=== PATIENT | male | born 1935 | race Caucasian/White ===

== ENCOUNTER 2018-02-16 02:42 | Emergency (ER) | payer OTHER ==
[2012-07-05 21:32] VITALS: BP 140/71
[2018-02-16] MEDS ORDERED: EPINEPHrine 1 MG/10 ML SYR IV ONE (02:43)
[2018-02-16] MEDS ORDERED: Caclcium Chloride 10% INJ SYR IV ONE (02:43)
[2018-02-16] MEDS ORDERED: SODIUM CHL 0.9% 1000 ML BAG IV ONE (02:43)
--- OUTSIDE RECORDS SUMMARY | 2018-02-16 02:45 | XMS REPORT | Clinical Summary ---
:1935 Author Organization [facility] Address [address] [place] [address] Care Team Providers Name Role Phone Ronald León MD Primary Care Provider Allergies Active Allergy Reactions Severity Noted Date Comments Albuterol Other (See 07/28/2016 Tachycardia, anxiety, Comments) shakiness Amoxicillin Anaphylaxis, High 01/27/2016 Angioedema Swelling Clarithromycin Swelling, Rash Low 07/28/2016 Angioedema Arformoterol Other (See 07/28/2016 Tachycardia, anxiety Comments) Clindamycin Phosphate Swelling 07/28/2016 Angioedema, fever, hypertension, tongue was white Enalapril 01/27/2016 Dry cough Cephalexin Itching 07/28/2016 Angioedema Morphine Other (See 07/28/2016 Anxiety, hypertension, Comments) AMS Penicillins Rash Low 07/28/2016 Clopidogrel Rash Medium 02/26/2017 Possibly Thrombotic Thrombocytopenic Purpura (Itching & Bruising) Current Medications Prescription Sig. Disp. Refills Start End Status Date Date metoprolol Take 12.5 mg by Active tartrate mouth 2 (two) (LOPRESSOR) 25 mg times a day. tablet clopidogrel Take 75 mg by Active (PLAVIX) 75 mg mouth every tablet morning. pantoprazole Take 40 mg by Active (PROTONIX) 40 MG mouth 2 (two) EC tablet times a day. furosemide Take 40 mg by Active (LASIX) 40 mg mouth 2 (two) tablet times a day. potassium Take 10 mEq by Active chloride mouth every (K-DUR,KLOR-CON) morning. 10 MEQ CR tablet aspirin (ECOTRIN) Take 81 mg by Active 81 MG enteric mouth nightly. coated tablet pravastatin Take 20 mg by Active (PRAVACHOL) 20 MG mouth nightly. tablet pyridoxine, Take 100 mg by Active vitamin B6, (B-6) mouth every 100 MG tablet morning. polyethylene Take 25.5 g by Active glycol (MIRALAX) mouth every 17 gram packet morning. traMADol (ULTRAM) Take 50 mg by Active 50 mg tablet mouth 4 (four) times a day as needed for moderate pain. ipratropium Take 500 mcg by Active (ATROVENT) 0.02 % nebulization 2 nebulizer (two) times a solution day. budesonide Take 0.5 mg by Active (PULMICORT) 0.5 nebulization 2 mg/2 mL nebulizer (two) times a solution day. tiotropium Place 1 capsule Active (SPIRIVA) 18 mcg into inhaler and per inhalation inhale every capsule morning. ipratropium USE ONE VIAL IN 62.5 mL 0 Active (ATROVENT) 0.02 % NEBULIZER EVERY 7 nebulizer 6 HOURS solution NEEDED blood sugar One strip daily 100 strip 2 Active diagnostic strips 7 (glucose blood) strip test strips mupirocin Active (BACTROBAN) 2 % 7 ointment amLODIPine Take 2.5 mg by Active (NORVASC) 2.5 mg mouth 2 (two) tablet times a day. hydrALAZINE Take 25 mg by Active (APRESOLINE) 25 mouth MG tablet continuously as needed. cyanocobalamin, Place 2,500 mcg Active vitamin B-12, under the tongue 5,000 mcg tablet, daily. sublingual ONETOUCH DELICA TEST FASTING 100 each 0 Active LANCETS 33 gauge BLOOD GLUCOSE 7 misc EVERY MORNING. ONETOUCH ULTRA TEST FASTING 100 strip 0 Active TEST strip test BLOOD GLUCOSE 7 strips EVERY MORNING. PERFOROMIST 20 INHALE THE 180 mL 1 Active mcg/2 mL CONTENTS OF 1 8 nebulizer VIAL MIXED WITH solution BUDESONIDE VIA NEBULIZER TWICE DAILY DIRECTED amLODIPine Take 2.5 mg by Discontinued (NORVASC) 2.5 MG mouth nightly. 017 tablet clonIDINE Take 0.1 mg by Discontinued (CATAPRES) 0.1 MG mouth. 017 tablet potassium Take 10 mEq by Discontinued chloride mouth daily. 017 (K-DUR,KLOR-CON) 10 MEQ CR tablet pravastatin Take 20 mg by Discontinued (PRAVACHOL) 20 MG mouth nightly. 017 tablet polyethylene Take 25.5 g by Discontinued glycol (MIRALAX) mouth 2 (two) 017 17 gram packet times a day. 1.5 capfuls formoterol Take 20 mcg by Discontinued fumarate nebulization 2 017 (PERFOROMIST) 20 (two) times a mcg/2 mL day. nebulizer solution budesonide Take 0.5 mg by Discontinued (PULMICORT) 0.5 nebulization 2 017 mg/2 mL nebulizer (two) times a solution day. levalbuterol Take 1 ampule by Discontinued (XOPENEX) 0.63 nebulization 017 mg/3 mL nebulizer every 6 (six) solution hours as needed for wheezing or shortness of breath. tiotropium Place 1 capsule Discontinued (SPIRIVA) 18 mcg into inhaler and 017 per inhalation inhale once capsule daily. albuterol Inhale 2 puffs Discontinued (PROVENTIL every 6 (six) 017 HFA;VENTOLIN HFA) hours as needed 90 mcg/actuation for wheezing. inhaler pyridoxine, Take 100 mg by Discontinued vitamin B6, (B-6) mouth daily. 017 100 MG tablet blood-glucose Use as 1 each 0 Discontinued meter (ONETOUCH instructed ULTRA2) kit (E11.69) blood sugar Test FSBG once 100 strip 3 Discontinued diagnostic strips daily in the (ONETOUCH ULTRA morning (E11.69) TEST) strip test strips lancets (ONETOUCH Test FSBG once 100 each 3 Discontinued DELICA LANCETS) daily in the 33 gauge misc morning (E11.69) famotidine Take 40 mg by 3 Discontinued (PEPCID) 40 MG mouth every 6 017 tablet evening. furosemide Take 40 mg by 3 Discontinued (LASIX) 40 mg mouth 2 (two) 6 017 tablet times a day. Hold for SBP less than 120 isosorbide Take 15 mg by 3 Discontinued mononitrate mouth daily as 6 017 (IMDUR) 30 MG 24 needed hr tablet (SBP>130). metoprolol Take 50 mg by 3 Discontinued tartrate mouth 2 (two) 7 017 (LOPRESSOR) 50 mg times a day. tablet pantoprazole Take 1 tablet by 1 Discontinued (PROTONIX) 40 MG mouth daily. 6 017 EC tablet aspirin (ECOTRIN) Take 81 mg by Discontinued 81 MG enteric mouth every 017 coated tablet evening. ticagrelor Take 90 mg by Discontinued (BRILINTA) 90 mg mouth 2 (two) 017 tablet times a day. bisacodyl Insert 1 30 suppository 1 (DULCOLAX) 10 mg suppository (10 7 017 suppository mg total) into the rectum daily as needed for constipation for up to 30 days. ciprofloxacin Take 1 tablet 10 tablet 0 (CIPRO) 500 MG (500 mg total) 7 017 tablet by mouth 2 (two) times a day for 5 days. metroNIDAZOLE Take 1 tablet 15 tablet 0 (FLAGYL) 500 MG (500 mg total) 7 017 tablet by mouth 3 (three) times a day for 5 days. metoprolol Take 12.5 mg by Discontinued tartrate mouth 2 (two) 017 (LOPRESSOR) 25 mg times a day. tablet HOLD for SBP less than 120 LORAZepam Take 1 tablet (1 1 tablet 0 Discontinued (ATIVAN) 1 MG mg total) by 7 017 tablet mouth every 6 (six) hours as needed for anxiety for up to 1 day. traMADol (ULTRAM) Take 50 mg by Discontinued 50 mg tablet mouth 4 (four) 017 times a day as needed for moderate pain or severe pain. FUROSEMIDE ORAL Take 30 mg by Discontinued mouth 2 (two) 017 times a day. clonIDINE Take 0.1 mg by Discontinued (CATAPRES) 0.1 MG mouth as needed 017 tablet for high blood pressure (SBP>170). clonIDINE HCl Take 1 tablet 90 tablet 0 (CATAPRES) 0.2 MG (0.2 mg total) 7 017 tablet by mouth every 8 (eight) hours for 30 days. hydrALAZINE Take 1 tablet 90 tablet 0 (APRESOLINE) 25 (25 mg total) by 7 017 MG tablet mouth every 8 (eight) hours for 30 days. hydrALAZINE Take 25 mg by Discontinued (APRESOLINE) 25 mouth 3 (three) 017 MG tablet times a day. clonIDINE Take 0.1 mg by Discontinued (CATAPRES) 0.1 MG mouth 3 (three) 017 tablet times a day. furosemide Take 40 mg by Discontinued (LASIX) 40 mg mouth daily. 017 tablet potassium Take 10 mEq by Discontinued chloride mouth daily. 017 (K-DUR,KLOR-CON) 10 MEQ CR tablet clopidogrel Take 75 mg by 3 Discontinued (PLAVIX) 75 mg mouth once 7 017 tablet daily. econazole nitrate APPLY AND GENTLY 6 Discontinued 1 % cream MASSAGE INTO 7 017 AFFECTED AREA(S) TWICE DAILY. triamcinolone APPLY AND RUB IN 2 Discontinued (KENALOG) 0.1 % A THIN FILM TO 7 017 cream AFFECTED AREAS TWICE DAILY.(AM AND PM). levalbuterol Inhale 1 ampule. Discontinued (XOPENEX) 0.63 017 mg/3 mL nebulizer solution traMADol (ULTRAM) Take 1 tablet by Discontinued 50 mg tablet mouth. 6 017 sodium,potassium, Take 1 Bottle by 1 Bottle 0 mag sulfates mouth once for 1 017 (SUPREP BOWEL dose. PREP KIT) 17.5-3.13-1.6 gram recon soln PERFOROMIST 20 INHALE THE 180 mL 1 Discontinued mcg/2 mL CONTENTS OF 1 7 017 nebulizer VIAL MIXED WITH solution BUDESONIDE VIA NEBULIZER TWICE DAILY DIRECTED ipratropium USE ONE VIAL IN 62.5 mL 0 Discontinued (ATROVENT) 0.02 % NEBULIZER EVERY 7 017 nebulizer 6 HOURS solution NEEDED hydrALAZINE Take 25 mg by Discontinued (APRESOLINE) 25 mouth 2 (two) 017 MG tablet times a day. isosorbide Take 15 mg by Discontinued mononitrate mouth daily. 017 (IMDUR) 30 MG 24 hr tablet ipratropium Take 500 mcg by Discontinued (ATROVENT) 0.02 % nebulization 017 nebulizer every 4 (four) solution hours as needed for wheezing or shortness of breath. hydrALAZINE Take 1 tablet 90 tablet 0 (APRESOLINE) 25 (25 mg total) by 7 017 MG tablet mouth every 8 (eight) hours for 30 days. amLODIPine Take 1 tablet 60 tablet 11 (NORVASC) 2.5 mg (2.5 mg total) 7 017 tablet by mouth 2 (two) times a day for 30 days. clindamycin Discontinued (CLEOCIN) 300 MG 7 017 capsule clindamycin Take 1 capsule 28 capsule 0 (CLEOCIN) 300 MG (300 mg total) 7 017 capsule by mouth 4 (four) times a day for 7 days. Active Problems Problem Noted Date Chest pain at rest 02/12/2018 Pseudophakia of both eyes 12/07/2017 Overview: Phaco/IOL OS 12/06/17 PC VAZQUEZ +23.5 diopter Doing well. Continue PO drops. Syncope 07/08/2017 Ataxia 03/01/2017 Cerebrovascular accident (CVA) 02/26/2017 Hx of chronic angle-closure glaucoma 02/25/2017 Overview: Dx: hx of chronic angle closure Tmax: Average IOP: 21 mmHg OU Target IOP: high teens Current Medications: none Past Medications: xalatan, alphagan Allergies: no eye drops C/D (Date): 0.4/0.4 OU (10/14) Laser/Surgeries: LPI OU Pachymetry: pending Gonioscopy: Grade 2 to 3 OU Family history: no glaucoma Last HVF (Date): 08/14 -OD: poor reliablility, generalized depression -OS: poor reliablility, rim artifact Last OCT (Date): 08/14, g=90/84 -OD: borderline inferior thinning -OS: inferior thinning Last Dilated: 10/14 Comments: Enteritis due to Escherichia coli 02/13/2017 SBO (small bowel obstruction) 02/07/2017 Closed nondisplaced fracture of proximal phalanx of left little finger 2015 Exotropia, alternating, with V pattern 08/26/2016 Macular degeneration, dry 08/26/2016 PVD (posterior vitreous detachment), both eyes 08/26/2016 Rosacea 08/26/2016 Hx-TIA (transient ischemic attack) 08/26/2016 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 Overview: Recently had 4 stents placed on 07/28/2016 Convergence insufficiency 08/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 NST (non-stress test) nonreactive 07/28/2016 Chronic obstructive pulmonary disease 01/27/2016 Delirium 01/27/2016 Hip pain 01/27/2016 Abnormal liver function tests 01/27/2016 Lumbosacral radiculopathy 01/27/2016 Nonspecific finding on examination of urine 08/15/2013 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 06/14/2013 Pleural cavity effusion 12/20/2012 Congestive heart failure 12/06/2012 Influenza with respiratory manifestation other than pneumonia 12/06/2012 Abnormal gait 08/10/2012 Anemia 08/10/2012 Follow up 08/10/2012 Hypotension 08/10/2012 Blisters of multiple sites 07/06/2012 Effusion of knee 07/06/2012 Knee pain 07/06/2012 Mass of breast 02/02/2012 Malaise and fatigue 02/02/2012 Neck pain 11/25/2011 Adiposity 05/13/2011 Urinary urgency 05/13/2011 Benign prostatic hyperplasia 03/10/2011 Constipation 03/10/2011 HTN (hypertension) 03/10/2011 HLD (hyperlipidemia) 03/10/2011 Low back pain 03/10/2011 Primary pulmonary hypertension 03/10/2011 Sciatica 03/10/2011 Sleep apnea 03/10/2011 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 Resolved Problems Problem Noted Date Resolved Date Nuclear sclerotic cataract of both eyes 08/26/2016 12/07/2017 Encounters Date Type Specialty Care Team Description 02/14/2018 Patient Outreach Quality Luz Elena Mojica RN 02/12/2018 Emergency General Internal Jyoti Barnes, Chest pain at rest ( Primary Dx); - Medicine Dyspnea on exertion 02/14/2018 Johnny Hutchinson MD Lee, Kelvin M., MD 02/03/2018 Telephone Ophthalmology Lin Petersen MD 12/23/2017 Office Visit Ophthalmology Lin Petersen Pseudophakia of both G., eyes (Primary Dx) 12/07/2017 Office Visit Ophthalmology Lin Petersen Pseudophakia of both G., eyes (Primary Dx) 12/06/2017 Hospital Encounter Plastic Surgery Lin Petersen MD 12/06/2017 Anesthesia Event Plastic Surgery Khushboo Nobles nd, MD 12/06/2017 Procedure Pass Plastic Surgery 12/06/2017 Surgery Plastic Surgery Lin Petersen PHATONEY W/ KATIE Alas MD 11/29/2017 Refill Neurology Ana Luisa Linder MD 11/16/2017 Office Visit Ophthalmology Lin Petersen Pseudophakia (Primary Bishop, Dx) 11/16/2017 Telephone Ophthalmology Lin Petersen MD 11/15/2017 Office Visit Ophthalmology Lin Petersen Pseudophakia of right GMD Alma eye (Primary Dx) 11/15/2017 Hospital Encounter Plastic Lin Harding MD 11/15/2017 Anesthesia Event Plastic Surgery Rajan Wright MD 11/15/2017 Procedure Pass Plastic Surgery 11/15/2017 Surgery Plastic Surgery Lin Petersen PHACO W/ IOL RIGHT GMD Alma EYE WITH LIMBAL RELAXING INCISION RIGHT EYE 11/04/2017 Refill Internal Medicine Ronald León MD 10/14/2017 Office Visit Ophthalmology Lin Petersen Nuclear sclerotic cataract of both eyes (Primary Dx); MD Bishop Macular degeneration, dry; Hx of chronic angle-closure glaucoma 10/13/2017 Office Visit Neurology Harry, Cosme, Blurred vision, bilateral ( Primary Dx); Intracranial atherosclerosis 10/08/2017 Orders Only Internal Medicine Ronald León MD 10/05/2017 Telephone Neurology Harry, Cosme, MD 10/01/2017 Telephone Internal Medicine Ronald León Vasculitis (Primary MD Garrett Dx) 09/29/2017 Hospital Encounter Radiology RomeliaKushalic Transient vision disturbance of both eyes; MD Garrett Cerebrovascular disease 09/29/2017 Hospital Encounter Radiology RomeliaKushalic Transient vision disturbance of both eyes; MD Garrett Cerebrovascular disease 09/21/2017 Office Visit Internal Medicine Ronald León Cellulitis, unspecified cellulitis site (Primary Dx); MD Garrett Transient vision disturbance of both eyes; Essential hypertension; Cerebrovascular disease 09/21/2017 Procedure Pass Radiology 09/21/2017 Procedure Pass Radiology 09/16/2017 Documentation Ophthalmology Marge Black MD 09/15/2017 Documentation Ophthalmology Sofia, Pancho Baer MD 09/14/2017 Orders Only Internal Medicine Edwina Jara MA 09/13/2017 Lab Lab Caren Black, both Marge Baer MD eyes 09/13/2017 Office Visit Ophthalmology Caren Black, both Marge Baer MD eyes (Primary Dx) 09/13/2017 Telephone Ophthalmology Marge Black MD 09/10/2017 Telephone Ophthalmology Lin Petersen MD 09/01/2017 Office Visit Ophthalmology Lin Petersen Nuclear sclerotic cataract of both eyes (Primary Dx); MD Bishop Macular degeneration, dry; Hx of chronic angle-closure glaucoma; PVD (posterior vitreous detachment), both eyes; Exotropia, alternating, with V pattern; Convergence insufficiency; Cerebrovascular accident (CVA) due to other mechanism 08/25/2017 Hospital Encounter Radiology Ronald León Thyroid nodule MD Garrett 08/25/2017 Hospital Encounter Radiology Cory Linderness of breath Ana Luisa Baer MD 08/16/2017 Transcribe Orders Access Christine Linder of breath Ana Luisa Baer (Primary Dx) 08/15/2017 Orders Only Internal Medicine Ronald León Thyroid nodule MD Garrett (Primary Dx) 08/13/2017 Hospital Encounter Radiology Ronald León Thyroid mass MD Garrett 08/09/2017 Orders Only Internal Medicine Ronald León Thyroid mass ( Primary MD Garrett Dx) 07/16/2017 Refill Neurology Ana Luisa Linder MD 07/10/2017 Orders Only Procedural Cardiology Haider Kevin 07/08/2017 Emergency General Internal Jyoti Barnes, Transient cerebral ischemia, unspecified type (Primary Dx); - Medicine Syncope, unspecified syncope type 07/12/2017 Alex Mclaughlin MD Kazim, Lubna S., MD 07/08/2017 Procedure Pass General Internal Medicine 06/24/2017 Refill Neurology Ana Luisa Linder MD 06/15/2017 Procedure Pass Gastroenterology 06/08/2017 Refill Neurology Ana Luisa Linder MD 05/28/2017 Telephone Internal Medicine Marek EdwinaGLORIA 05/26/2017 Hospital Encounter Radiology Ronald León Dyspnea on exertion MD Garrett 05/26/2017 Office Visit Gastroenterology Michelle, Generalized abdominal pain (Primary Dx); Cuauhtemoc Moralez Colon cancer screening 05/26/2017 Office Visit Internal Medicine Ronald León Dyspnea on exertion MD Garrett (Primary Dx) 05/12/2017 Documentation Nader Niño 2017 Office Visit Neurology Cosme Mcdonald, Cerebrovascular accident ( CVA) due to other mechanism (Primary Dx); Intracranial atherosclerosis; Memory difficulty; Essential hypertension 03/15/2017 Abstract Orthopedic Surgery Rajan Aaron MD 03/06/2017 Patient Outreach Quality Karen Maya RN 02/26/2017 Hospital Encounter Neurology Amadeo Ward Cerebrovascular accident (CVA) due to other mechanism (Primary Dx); - MD Mervin Hypertensive emergency; 03/06/2017 Cash Greer Ataxia; MD Lisseth Vertigo; Metabolic acidosis; Abnormal gait 02/25/2017 Hospital Encounter Radiology Ronald León Transient cerebral MD Garrett ischemia, unspecified type 02/25/2017 Office Visit Ophthalmology Lin Petersen Nuclear sclerotic cataract of both eyes (Primary Dx); MD Herberth Alas of chronic angle-closure glaucoma; Macular degeneration, dry; PVD (posterior vitreous detachment), both eyes; Exotropia, alternating, with V pattern; Convergence insufficiency; Sleep apnea, unspecified type; Hx-TIA (transient ischemic attack); Coronary artery disease involving [place] coronary artery of [place] heart with angina pectoris 02/25/2017 Office Visit Internal Medicine Ronald León Essential hypertension (Primary Dx); MD Garrett Hypotension, unspecified hypotension type; Transient cerebral ischemia, unspecified type 02/25/2017 Procedure Pass Radiology 02/24/2017 Abstract Orthopedic Surgery Rajan Aaron MD 02/24/2017 Abstract Orthopedic Surgery Rajan Aaron MD after 02/15/2017 Immunizations Name Dates Previously Given Next Due FLUZONE HIGH-DOSE PF 08/26/2016 Pneumococcal Conjugate 04/29/2009 Pneumococcal Conjugate 13-Valent 03/07/2015 Pneumococcal Polysaccharide 08/26/2016 Family History Medical History Relation Name Comments Testicular cancer Brother Cancer Brother Wander Sykora - Heart disease Father Robinson Sykora - Hypertension Father Robinson Sykora - Stroke Father Robinson Sykora - Cancer Maternal Aunt Isadora Kovar - Cancer Maternal Grandmother Marlin Senkyrik - Glaucoma Maternal Grandmother Marlin Senkyrik - Cancer Maternal Uncle Jose Senkyrik - Cancer Mother Luzma Sykora - Heart disease Mother Luzma Sykora - Hypertension Mother Luzma Sykora - Leukemia Mother Luzma Sykora - Stroke Mother Luzma Sykora - Hypertension Sister Leukemia Sister Cancer Sister Darwinralf Morfin - Leukemia Hypertension Sister Darwin Rich - Leukemia Hypertension Sister Darwin Relation Name Status Comments Brother Brother Wander Sykora - Father Robinson Sykora - Maternal Aunt Isadora Kovar - Maternal Grandmother Marlin Senkyrik - Maternal Uncle Jose Senkyrik - Mother Luzma Sykora - Sister Sister Darwin Morfin - Leukemia Sister Darwin Social History Tobacco Use Types Packs/Day Years Used Date Never Smoker Smokeless Tobacco: Never Used Comments: Smokeless tobacco user - started 1964 -quit 1993 Alcohol Use Drinks/Week oz/Week Comments Yes social - 1-2 drinks on occassion Sex Assigned at Date Recorded Not on file Last Filed Vital Signs Vital Sign Reading Time Taken Blood Pressure 138/66 02/14/2018 12:03 PM CDT Pulse 76 02/14/2018 12:03 PM CDT Temperature 37 C (98.6 F) 02/14/2018 7:29 AM CDT Respiratory Rate 18 02/14/2018 8:06 AM CDT Oxygen Saturation 97% 02/14/2018 7:54 AM CDT Inhaled Oxygen Concentration - - Weight 120 kg (265 lb 8 oz) 12/06/2017 6:42 AM SENIOR LOAN PROCESSOR Height 182.9 cm (6') 12/06/2017 6:42 AM SENIOR LOAN PROCESSOR Body Mass Index 36.01 12/06/2017 6:42 AM SENIOR LOAN PROCESSOR Plan of Treatment Date Type Specialty Care Team Description 02/17/2018 Office Visit Internal Medicine Ronald León MD [address] [place], [place] [id number] 03/24/2018 Office Visit Ophthalmology Lin Petersen MD [address] [place], [place] [id number] Health Maintenance Due Date Last Done Comments ZOSTER VACCINE 1996 INFLUENZA VACCINE 06/29/2017 08/26/2016 PNEUMOCOCCAL-13 Completed 03/07/2015 PNEUMOCOCCAL POLYSACCHARIDE VACCINE AGE 65 Completed 08/26/2016, 04/29/2009 AND OVER Implants Implanted Type Area Commercial [employer] Device Expiration Model / Identifier Date Serial / Lot Stent Cor Promus Premier Everm Elut Otw 2.5x16mm Pltnm Cr - [id number] Coronary N/A: BSC 03/21/2017 [id number] / Implanted: 07/28/2016 (Quantity not on file) Stents N/A INTERVENTIONAL / CARDIOLOGY [id number] Lens Iol Tecnis Preload 1 Piece Acrylic 23.5d - [id number] Ophthalmic N/A: [employer] 08/06/2020 [id number] / Implanted: 11/15/2017 (Quantity not on file) Implants N/A [employer] [id number] / [id number] Lens Iol Tecnis Preload 1 Piece Acrylic 23.5d - [id number] Ophthalmic Left: [employer] 12/15/2019 [id number] / Implanted: 12/06/2017 (Quantity not on file) Implants Eye [employer] [id number] / [id number] Right Hip Replacement Procedures Procedure Name Priority Date/Time Associated Comments Diagnosis ECHOCARDIOGRAM 2D Routine 02/13/2018 11:29 Results for this COMPLETE W MMODE AM CDT procedure are in SPECTRAL COLOR DOPPLER the results (24544) section. PHACO W/ IOL 12/06/2017 7:30 H25.13 CATARACT AM SENIOR LOAN PROCESSOR Case Notes REG LENS Special Needs REG LENS PHACO W/ IOL RIGHT EYE WITH LIMBAL 11/15/2017 10:30 AM SENIOR LOAN PROCESSOR H25.13 CATARACT RELAXING INCISION RIGHT EYE Case Notes REG LENS Special Needs REG LENS IOL BIOMETRY - OU - Routine 10/14/2017 2:51 PM Nuclear sclerotic Results for this BOTH EYES SENIOR LOAN PROCESSOR cataract of both procedure are in eyes the results section. CV STRESS TEST NUCLEAR Routine 07/10/2017 8:53 AM Results for this CARDIO CDT procedure are in the results section. EEG AWAKE/DROWSY LESS Routine 07/09/2017 10:34 AM Results for this THAN 41 MIN CDT procedure are in the results section. ECHOCARDIOGRAM 2D Routine 02/27/2017 11:16 AM Results for this COMPLETE W MMODE CDT procedure are in SPECTRAL COLOR DOPPLER the results (55488) section. after 02/15/2017 Results PV physiologic arterial lower ext bilat complete w jackie (02/14/2018 9:30 AM) Specimen Performing Laboratory [facility] [address] [place] [address] Narrative Vascular Diagnostic Laboratory Physiologic Arterial Leg Report [id number] [place] [address] Pat.Name:CHRISTINE BENITEZ [facility].ID:[id number] .Date: 02/14/2018 Refer.MD:JASMIN DUQUE MD Exam Time: 8:44:00 AMStudy Type:Physiologic Leg Height:70inDOBAge:1934,[age]Y Sex: MALESonogrphr: VAUGHN Quintanilla Pat. Stat.:Inpatient TapeVol: FE, CPT - 4: 81395 Echo Event ID:[id number] Order ID:[id number] Reason for Study:History of bilateral leg pain. CAD, systolic and diastolic CHF, TIA, ascending AA, COPD, HTN, HLD,who presents with substernal "jabbing" chest pain described as pleurisy, that begins this morning when he wakes up. Race:C SUMMARY: DOPPLER SIGNALS /ANALOG WAVEFORMS: DOPPLER SIGNALS ANALOG WAVEFORMS ARTERY RIGHT LEFT RIGHT LEFT Common Femoral Normal Normal Normal Normal Superficial Femoral Normal NormalNormalNormal PoplitealNormal NormalNormalNormal Posterior Tibial Normal NormalNormal Normal Dorsalis Pedis Abnormal Abnormal AbnormalAbnormal SEGMENTAL PRESSURE(mmHg): RIGHT LEFT Brachial 142 IV Low [place]596 166 Calf [id number] Ankle DP 137 150 Ankle [id number] Great Toe 5156 ANKLE/BRACHIAL INDEX: RIGHTLEFT Dorsalis Pedis.961.06 Posterior Tibial.95 .89 TOE/BRACHIAL INDEX: RIGHT LEFT .36.39 PRELIMINARY FINDINGS: 1.Findings suggest tibial artery obstructive disease, bilaterally. 2.Ankle/brachial indices fall into the normal category on the right and minimal category on the left PT and normal category on the left DP. 3.Toe/brachial indices fall into the moderate-severe category, bilaterally. 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 Ankle/brachial indices fall into the normal category on the right and minimal category on the left PT and normal category on the left DP.Toe/brachial indices fall into the moderate-severe category, bilaterally. Signed 02/14/2018 01:45 PM Corey Giron MD, RPVI Procedure Note Interface, Radiology Results In - 02/14/2018 1:46 PM CDT Vascular Diagnostic Laboratory Physiologic Arterial Leg Report [id number] [place] [address] Pat.Name: CHRISTINE BENITEZ Pat.ID: [id number] .Date: 02/14/2018 Refer.MD: JASMIN DUQUE MD Exam Time: 8:44:00 AM Study Type:Physiologic Leg Height: 70in Age: 6 1935,82Y Sex: MALE Sonogrphr: VAUGHN Quintanilla Pat. Stat.:Inpatient Tape Vol: FE, CPT - 4: 84801 Echo Event ID:[id number] Order ID: [id number] Reason for Study:History of bilateral leg pain. CAD, systolic and diastolic CHF, TIA, ascending AA, COPD, HTN, HLD, who presents with substernal "jabbing" chest pain described as pleurisy, that begins this morning when he wakes up. Race: C SUMMARY: DOPPLER SIGNALS / ANALOG WAVEFORMS: DOPPLER SIGNALS ANALOG WAVEFORMS ARTERY RIGHT LEFT RIGHT LEFT Common Femoral Normal Normal Normal Normal Superficial Femoral Normal Normal Normal Normal Popliteal Normal Normal Normal Normal Posterior Tibial Normal Normal Normal Normal Dorsalis Pedis Abnormal Abnormal Abnormal Abnormal SEGMENTAL PRESSURE (mmHg): RIGHT LEFT Brachial 142 IV Low Thigh 169 166 Calf 147 176 Ankle DP 137 150 Ankle PT 135 126 Great Toe 51 56 ANKLE/BRACHIAL INDEX: RIGHT LEFT Dorsalis Pedis .96 1.06 Posterior Tibial .95 .89 TOE/BRACHIAL INDEX: RIGHT LEFT .36 .39 PRELIMINARY FINDINGS: 1. Findings suggest tibial artery obstructive disease, bilaterally. 2. Ankle/brachial indices fall into the normal category on the right and minimal category on the left PT and normal category on the left DP. 3. Toe/brachial indices fall into the moderate-severe category, bilaterally. 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 Ankle/brachial indices fall into the normal category on the right and minimal category on the left PT and normal category on the left DP. Toe/brachial indices fall into the moderate-severe category, bilaterally. Signed 02/14/2018 01:45 PM Corey Giron MD, RPVI Estimated GFR (02/14/2018 6:15 AM)Only the most recent of12 resultswithin the time period is included. Component Value Ref Range GFR Non Af Amer 64 mL/min/1.73 m2 GFR Af Amer 78 mL/min/1.73 m2 Comment: Chronic kidney disease: <60 mL/min/1.73m2 Kidney failure: <15 mL/min/1.73m2 The estimated GFR is calculated from the IDMS-traceable Modification of Diet in Renal Disease Equation. The accuracy of the calculation is poor when the creatinine is normal. Calculated values >90 mL/min/1.73m2 are not reported. This equation has not been validated in children (<18 years), women, the elderly (>70 years), or ethnic groups other than Caucasians and Americans. Specimen Performing Laboratory Plasma specimen [facility] DEPARTMENT OF PATHOLOGY AND GENOMIC MEDICINE [address] [place] [address] CBC with platelet and differential (02/14/2018 6:15 AM)Only the most recent of13 resultswithin the time period is included. Component Value Ref Range WBC 9.49 4.50 - 11.00 k/uL RBC 3.49 (L) 4.40 - 6.00 m/uL HGB 10.3 (L) 14.0 - 18.0 g/dL HCT 31.4 (L) 41.0 - 51.0 % MCV 90.0 82.0 - 100.0 fL MCH 29.5 27.0 - 34.0 pg MCHC 32.8 31.0 - 37.0 g/dL RDW - SD 48.5 37.0 - 55.0 fL MPV 12.1 8.8 - 13.2 fL Platelet count 165 150 - 400 k/uL Nucleated RBC 0.00 /100 WBC Neutrophils 73.0 (H) 39.0 - 69.0 % Lymphocytes 14.6 (L) 25.0 - 45.0 % Monocytes 11.3 (H) 0.0 - 10.0 % Eosinophils 0.6 0.0 - 5.0 % Basophils 0.1 0.0 - 1.0 % Immature granulocytes 0.4Comment: "Immature granulocytes" 0.0 - 1.0 % (promyelocytes, myelocytes, metamyelocytes) Specimen Performing Laboratory Blood [facility] DEPARTMENT OF PATHOLOGY AND GENOMIC MEDICINE [address] [place] [address] Phosphorus level (02/14/2018 6:15 AM) Component Value Ref Range Phosphorus 2.1 (L) 2.4 - 4.5 mg/dL Specimen Performing Laboratory Plasma specimen [facility] DEPARTMENT OF PATHOLOGY AND GENOMIC MEDICINE [address] [place] [address] Magnesium level (02/14/2018 6:15 AM)Only the most recent of3 resultswithin the time period is included. Component Value Ref Range Magnesium 2.5 (H) 1.6 - 2.4 mg/dL Specimen Performing Laboratory Plasma specimen [facility] DEPARTMENT OF PATHOLOGY AND GENOMIC MEDICINE [address] [place] [address] Basic metabolic panel (02/14/2018 6:15 AM)Only the most recent of8 resultswithin the time period is included. Component Value Ref Range Sodium 137 135 - 148 mEq/L Potassium 4.1 3.5 - 5.0 mEq/L Chloride 103 98 - 112 mEq/L CO2 24 24 - 31 mEq/L Anion gap 10 7 - 15 mEq/L Comment: Starting from February , anion gap calculation no longer incorporates potassium. Please note the change. BUN 23 8 - 23 mg/dL Creatinine 1.1 0.7 - 1.2 mg/dL Glucose 145 (H) 65 - 99 mg/dL Calcium 8.9 8.8 - 10.2 mg/dL Specimen Performing Laboratory Plasma specimen [facility] DEPARTMENT OF PATHOLOGY AND GENOMIC MEDICINE [address] [place] [address] XR Abdomen 1 Vw (02/13/2018 11:39 AM) Specimen Performing Laboratory [facility] [address] [place] [address] Narrative EXAMINATION:XR ABDOMEN 1 VW CLINICAL HISTORY:ABDOMINAL PAIN COMPARISON:Abdomen x-ray 02/12/2017 FINDINGS: The bowel gas pattern is nonspecific. There is a moderate amount retained stool in the transverse colon. There is gaseous distention of the descending colon and sigmoid colon. Dilated small bowel loops measuring 4 cm are located in the left abdomen. No pathologic masses or calcifications are identified. The lung bases are free of acute disease. There is a total right hip arthroplasty. There is advanced degenerative narrowing of the L4-5 disc space.. No definite free air on the images provided. IMPRESSION: The differential diagnosis would include distal colon obstruction, constipation , and adynamic ileus. [id number] Procedure Note Interface, Radiology Results Incoming - 02/13/2018 4:15 PM CDT EXAMINATION: XR ABDOMEN 1 VW CLINICAL HISTORY: ABDOMINAL PAIN COMPARISON: Abdomen x-ray 02/12/2017 FINDINGS: The bowel gas pattern is nonspecific. There is a moderate amount retained stool in the transverse colon. There is gaseous distention of the descending colon and sigmoid colon. Dilated small bowel loops measuring 4 cm are located in the left abdomen. No pathologic masses or calcifications are identified. The lung bases are free of acute disease. There is a total right hip arthroplasty. There is advanced degenerative narrowing of the L4-5 disc space.. No definite free air on the images provided. IMPRESSION: The differential diagnosis would include distal colon obstruction, constipation , and adynamic ileus. [id number] Echocardiogram complete w contrast and 3D if needed (02/13/2018 11:29 AM) Specimen Performing Laboratory [facility] [address] [place] [address] Narrative Echocardiography Report [address] [address], [place], [place] [address].Name:CHRISTINE BENITEZ [facility].ID:[id number] .Date: 02/13/2018 Refer.MD:MICHAEL NOLAN MD Exam Time: 10:17:00 AM Study Type:Routine Echo Height:72inWeight:265lb BSA: 2.4 d0SSOLdm:1935,82Y Sex: MALEBP:125/56 HR:75 bpmSonogrphr: Kirstin Muniz, [facility] Pat. Stat.:Inpatient Room:[facility] Study Status:Final Echo Event ID:[id number] Order ID:[id number] Reason for Study:Chest pain, aortic stenosis History / Clinical:Congestive Heart Failure, Hyperlipidemia, Hypertension, Shortness of Breath, Stroke Procedures:2D Echo, Colorflow Doppler, Intravenous Definity Contrast Race:C SUMMARY: -LV EF is moderately depressed. Estimated EF is 40-44%.Basal and mid infero-posterior wall motion abnormalities. -RV systolic function is normal. -Moderate calcific (MG 35 mmHg; BRAYAN 1.1 cm2). FINDINGS: LV: LV size is normal. LV EF is moderately depressed. Estimated EFis 40-44%. Septal motion is paradoxical secondary to LBBBor conduction abnormality. Basal and mid infero-posteriorwall motion abnormalities. RV: RV size is normal. RV systolic function is normal. LA: LA volume is mild to moderately enlarged. RA: RA volume is mildly enlarged. AO: Ascending aorta diameter is mildly enlarged. LEFTY: No pericardial effusion. SVn:Inferior vena cava is enlarged. AV: Moderate to severe thickening and calcification of AV leaflets.Moderate calcific aortic valve stenosis. MV: Mild mitral annular calcification. A trace of mitral regurgitation. PV: No structural PV abnormalities noted. TV: No structural TV abnormalities noted. Gallo: LV filling pressure is normal. Other:Insufficient TR jet to estimate PA systolic pressure. MEASUREMENTS: 2D Parasternal Long [place] LA Ds4.4 cmIVSd 1 cm Ao An1.8 cmLVPWd1.2 cm LVOT 2.4 cmAo Rtd 4 cm Index1.7 cm/m LVIDd5.7 cmIndex 2.4 cm/m LV Pewz653.1 g(122-174) LVIDs4.6 cmLVM Qyssi359.1 g/m2 LV%fs 19.9 % RWT0.4 LA Sng Plane LA Area 26.1 cm2(8.8-23.4) LA Vol91.7 ml Index38.2 ml/m LA LngAx 6 cm RA Sng Plane RA Area 23.7 cm2(8.3-19.5) RA Vol90.2 ml Index37.6 ml/m RA LngAx 5.4 cm DOPPLER AV For Flow/BRAYAN AV pkVel 375.3 cm/s (100-170) AV AC/ET 0.4 AV mnVel 268.9 cm/Jasmin TVI 85.4 cm AV pkPG 56.3 mmHgAVpkAcRt 8079.3 cm/s2 AV Mean G 34.9 mmHgAV DeRt 1182 cm/s2 AV AC129 msec (83-118) AV Area1.1 cm2(3-5) AV ET318 msec LVOT For Flow LVOT Area4.5 cm2 LVOT SV 95.7 ml LVOTpkVel 86.5 cm/sHR73.1 bpm LVOTpkPG 3 mmHgLVOT CO7 l/min LVOTmnPG 1.8 mmHgLVOT CI 2.9 l/m/m2 LVOT TVI21.2 cm MV E/A Ratio MV pkE57.2 cm/s (60-130) MV E/A 1.1 MV pkA50.1 cm/s IVRT IVRT 111 msec WALL MOTION: RESTING WALL MOTION: Basal Inferolateral, Mid Inferolateral shi are akinetic.Basal Inferior, Mid Inferior shi are hypokinetic. Normal in all other shi. Wall Index=1.4 Signed 02/13/2018 03:41 PM Rajan Beasley M.D. Procedure Note Interface, Radiology Results In - 02/13/2018 3:41 PM CDT Echocardiography Report [address]Name: CHRISTINE BENITEZ [facility].ID: [id number] .Date: 02/13/2018 Refer.MD: MICHAEL NOLAN MD Exam Time: 10:17:00 AM Study Type:Routine Echo Height: 72in Weight: 265lb BSA: 2.4 m2 Age: 6 1935,82Y Sex: MALE BP: 125/56 HR: 75 bpm Sonogrphr: Kirstin Muniz, RDCS Pat. Stat.:Inpatient Room: [facility] Study Status:Final Echo Event ID:[id number] Order ID: [id number] Reason for Study:Chest pain, aortic stenosis History / Clinical:Congestive Heart Failure, Hyperlipidemia, Hypertension, Shortness of Breath, Stroke Procedures:2D Echo, Colorflow Doppler, Intravenous Definity Contrast Race: C SUMMARY: -LV EF is moderately depressed. Estimated EF is 40-44%.Basal and mid infero-posterior wall motion abnormalities. -RV systolic function is normal. -Moderate calcific (MG 35 mmHg; BRAYAN 1.1 cm2). FINDINGS: LV: LV size is normal. LV EF is moderately depressed. Estimated EF is 40-44%. Septal motion is paradoxical secondary to LBBB or conduction abnormality. Basal and mid infero-posterior wall motion abnormalities. RV: RV size is normal. RV systolic function is normal. LA: LA volume is mild to moderately enlarged. RA: RA volume is mildly enlarged. AO: Ascending aorta diameter is mildly enlarged. LEFTY: No pericardial effusion. SVn: Inferior vena cava is enlarged. AV: Moderate to severe thickening and calcification of AV leaflets. Moderate calcific aortic valve stenosis. MV: Mild mitral annular calcification. A trace of mitral regurgitation. PV: No structural PV abnormalities noted. TV: No structural TV abnormalities noted. Gallo: LV filling pressure is normal. Other: Insufficient TR jet to estimate PA systolic pressure. MEASUREMENTS: 2D Parasternal Long [place] LA Ds 4.4 cm IVSd 1 cm Ao An 1.8 cm LVPWd 1.2 cm LVOT 2.4 cm Ao Rtd 4 cm Index 1.7 cm/m LVIDd 5.7 cm Index 2.4 cm/m LV Mass 269.1 g (122-174) LVIDs 4.6 cm LVM Index 112.1 g/m2 LV%fs 19.9 % RWT 0.4 LA Sng Plane LA Area 26.1 cm2 (8.8-23.4) LA Vol 91.7 ml Index 38.2 ml/m LA LngAx 6 cm RA Sng Plane RA Area 23.7 cm2 (8.3-19.5) RA Vol 90.2 ml Index 37.6 ml/m RA LngAx 5.4 cm DOPPLER AV For Flow/BRAYAN AV pkVel 375.3 cm/s (100-170) AV AC/ET 0.4 AV mnVel 268.9 cm/s AV TVI 85.4 cm AV pkPG 56.3 mmHg AVpkAcRt 8079.3 cm/s2 AV Mean G 34.9 mmHg AV DeRt 1182 cm/s2 AV AC 129 msec (83-118) AV Area 1.1 cm2 (3-5) AV ET 318 msec LVOT For Flow LVOT Area 4.5 cm2 LVOT SV 95.7 ml LVOTpkVel 86.5 cm/s HR 73.1 bpm LVOTpkPG 3 mmHg LVOT CO 7 l/min LVOTmnPG 1.8 mmHg LVOT CI 2.9 l/m/m2 LVOT TVI 21.2 cm MV E/A Ratio MV pkE 57.2 cm/s (60-130) MV E/A 1.1 MV pkA 50.1 cm/s IVRT IVRT 111 msec WALL MOTION: RESTING WALL MOTION: Basal Inferolateral, Mid Inferolateral shi are akinetic. Basal Inferior, Mid Inferior shi are hypokinetic. Normal in all other shi. Wall Index=1.4 Signed 02/13/2018 03:41 PM Rajan Beasley M.D. Creatine kinase, total (CPK) (02/13/2018 4:00 AM)Only the most recent of2 resultswithin the time period is included. Component Value Ref Range Creatine kinase 78 39 - 308 U/L Specimen Performing Laboratory Plasma specimen [facility] DEPARTMENT OF PATHOLOGY AND GENOMIC MEDICINE [address] [place] [address] Troponin (02/12/2018 10:42 PM)Only the most recent of5 resultswithin the time period is included. Component Value Ref Range Troponin <0.30 0.00 - 0.30 ng/mL Comment: 0.30 - 1.49 ng/mlMay indicate increased risk of acute coronary syndrome. >=1.5 ng/mlConsistent with acute myocardial infarction. The diagnostic value of a single normal or non-diagnostic result is questionable.Serial samples at 2-6 hour intervals are required to rule out acute myocardial injury. Specimen Performing Laboratory Plasma specimen [facility] DEPARTMENT OF PATHOLOGY AND GENOMIC MEDICINE [address] [place] [address] Respiratory pathogen panel (02/12/2018 8:05 PM) Component Value Ref Range Respiratory pathogen panel Negative for all pathogens tested: Negative for Adenovirus Negative for Coronavirus HKU1 Negative for Coronavirus NL63 Negative for Coronavirus 229E Negative for Coronavirus OC43 Negative for Human Metapneumovirus Negative for Rhinovirus/Enterovirus Negative for Influenza A Negative for Influenza A/H1 Negative for Influenza A/H3 Negative for Influenza A/H1-2009 Negative for Influenza B Negative for Parainfluenza Virus 1 Negative for Parainfluenza Virus 2 Negative for Parainfluenza Virus 3 Negative for Parainfluenza Virus 4 Negative for Respiratory Syncytial Virus Negative for Bordetella pertussis Negative for Chlamydophila pneumoniae Negative for Mycoplasma pneumoniae This real-time PCR assay detects the presence of nucleic acids (RNA or DNA) for the respiratory pathogens listed. A result of "Not-detected" does not exclude the possibility of the presence of one or more pathogens at concentrations less than the detectable limits of the assay. Comment: Specimen Information Specimen Source: Nares Specimen Site: Left Specimen Performing Laboratory Nares - Left [facility] DEPARTMENT OF PATHOLOGY AND GENOMIC MEDICINE [address] [place] [address] Urinalysis screen and microscopy, with reflex to culture (02/12/2018 8:05 PM) Only the most recent of2 resultswithin the time period is included. Component Value Ref Range Specimen site Clean catch Color, UA Yellow Appearance, UA Clear Specific gravity, UA 1.032 1.001 - 1.035 pH, UA 5.0 5.0 - 8.5 Protein, UA Negative Negative Glucose, UA Negative Negative Ketones, UA Negative Negative Bilirubin, UA Negative Negative Blood, UA Negative Negative Nitrite, UA Negative Negative Urobilinogen, UA 4.0 (A) <2.0 Leukocyte esterase, UA Negative Negative Epithelial cells, UA <1 /HPF WBC, UA 1 0 - 1 /HPF RBC, UA 5 (H) 0 - 1 /HPF Bacteria, UA Few None seen Yeast, UA None seen Yeast with pseudohyphae, UA None seen Hyaline casts, UA 3 /LPF Specimen Performing Laboratory Urine [facility] DEPARTMENT OF PATHOLOGY AND GENOMIC MEDICINE [address] [place] [address] Urine culture (02/12/2018 8:05 PM)Only the most recent of2 resultswithin the time period is included. Component Value Ref Range Urine culture SEE COMMENTComment: Bacteriuria screen negative. Specimen Performing Laboratory [facility] PATHOLOGY AND [address] [address] Sedimentation rate (02/12/2018 7:50 PM)Only the most recent of3 resultswithin the time period is included. Component Value Ref Range Sedimentation rate 17 (H) 0 - 10 mm/hr Specimen Performing Laboratory Blood [facility] [address] [address] CRP high sensitivity (02/12/2018 7:50 PM) Component Value Ref Range CRP, high sensitivity >30.00 mg/L Comment: Please note this test is different from the C-Reactive Protein (CRP) assay. CRP is a nonspecific marker of inflammation and its levels rise in the presence of conditions such as infection and inflammatory disorders. Persistent low levels of CRP can be measured with a high-sensitivity assay (hsCRP) andare associated with increased risks for atherosclerotic diseases. High-Sensitivity CRP (hsCRP) results are used to assign risk for stroke, acute myocardial infarction and peripheral vascular disease as follows: Low risk: < 1.00 mg/L Average risk: 1.00 - 3.00 mg/L High risk: > 3.00 - 10.00 mg/L Indeterminate: > 10.00 mg/L * *May be indicative of another source of inflammation or infection Specimen Performing Laboratory Plasma specimen [facility] DEPARTMENT OF PATHOLOGY [address] [address] [address] Angiogram Pe Chest (02/12/2018 7:43 PM)Only the most recent of2 resultswithin the time period is included. Specimen [facility] [address] [place] [address] ANGIOGRAM PE CHEST CLINICAL INDICATION: dyyspneahx of aortic aneurysm COMPARISON:CTA 07/11/2017. TECHNIQUE:CT angiographic images of the chest were obtained during intravenous administration of iodinated contrast.Computerized, reformatted images and 3 -D MIP images were obtained and archived (per CT pulmonary embolism protocol). CT scans are performed using radiation dose reduction techniques (iterative reconstruction and/or automated exposure control). Technical factors are evaluated and adjusted to ensure appropriate moderation of exposure. Automated dose management technology is applied to adjust radiation exposure while achieving a diagnostic quality image. FINDINGS: Pulmonary arteries: Diagnostic quality of study is adequate for the evaluation of pulmonary embolism. There is no evidence of acute or chronic pulmonary embolism. No evidence of right heart strain. The main pulmonary artery measures 28 mm in luminal diameter. Aorta:Stable fusiform aneurysmal dilatation of the ascending aorta up to 4.3 cm. No dissection. Moderate calcific atherosclerosis of the thoracic aorta. Lungs and large airways:Dependent subsegmental atelectasis/scarring. No focal or confluent airspace consolidation.. Pleura:No pleural effusion, pleural thickening, or pneumothorax. Heart and pericardium:Heart size is enlarged. Coronary atherosclerosis. Trace pericardial effusion. Mediastinum and gareth: Peripherally calcified thyroid nodule measuring 0.8 cm, stable. Lymph nodes:Subcentimeter mediastinal lymph nodes are noted. No pathological adenopathy in the gareth, axilla or mediastinum. Chest wall:Unremarkable. Bones:Moderate degenerative changes. Upper abdomen:No focal abnormality detected with limited evaluation. IMPRESSION: 1. Negative CTA examination for pulmonary embolism. 2. Lungs without focal or confluent airspace consolidation. 3. Cardiomegaly. Stable fusiform aneurysm of the ascending aorta. [facility]-[id number] Procedure Note [facility], Radiology Results Incoming - 02/12/2018 7:[address] ANGIOGRAM PE CHEST CLINICAL INDICATION: dyyspnea hx of aortic aneurysm COMPARISON: CTA 07/11/2017. TECHNIQUE: CT angiographic images of the chest were obtained during intravenous administration of iodinated contrast. Computerized, reformatted images and 3-D MIP images were obtained and archived (per CT pulmonary embolism protocol). CT scans are performed using radiation dose reduction techniques (iterative reconstruction and/or automated exposure control). Technical factors are evaluated and adjusted to ensure appropriate moderation of exposure. Automated dose management technology is applied to adjust radiation exposure while achieving a diagnostic quality image. FINDINGS: Pulmonary arteries: Diagnostic quality of study is adequate for the evaluation of pulmonary embolism. There is no evidence of acute or chronic pulmonary embolism. No evidence of right heart strain. The main pulmonary artery measures 28 mm in luminal diameter. Aorta: Stable fusiform aneurysmal dilatation of the ascending aorta up to 4.3 cm. No dissection. Moderate calcific atherosclerosis of the thoracic aorta. Lungs and large airways: Dependent subsegmental atelectasis/scarring. No focal or confluent airspace consolidation.. Pleura: No pleural effusion, pleural thickening, or pneumothorax. Heart and pericardium: Heart size is enlarged. Coronary atherosclerosis. Trace pericardial effusion. Mediastinum and gareth: Peripherally calcified thyroid nodule measuring 0.8 cm, stable. Lymph nodes: Subcentimeter mediastinal lymph nodes are noted. No pathological adenopathy in the gareth, axilla or mediastinum. Chest wall: Unremarkable. Bones: Moderate degenerative changes. Upper abdomen: No focal abnormality detected with limited evaluation. IMPRESSION: 1. Negative CTA examination for pulmonary embolism. 2. Lungs without focal or confluent airspace consolidation. 3. Cardiomegaly. Stable fusiform aneurysm of the ascending aorta. [facility]-[id number] ECG ED Preliminary Interpretation - NOT AN ORDER (02/12/2018 6:52 PM)Only the most recent of3 resultswithin the time period is included. Vanessa Barnes MD 02/13/2018 10:52 AM ECG ED Preliminary Interpretation - Not an Order Performed by: JYOTI BARNES Authorized by: JYOTI BARNES ECG reviewed by ED Physician in the absence of a registered nurse practitioner: yes Previous ECG: Previous ECG:Unavailable Rate: ECG rate:89 ECG rate assessment: normal Rhythm: Rhythm: sinus rhythm Ectopy: Ectopy: PAC Conduction: Conduction: abnormal Abnormal conduction: 1st degree Other findings: Other findings: LVH B natriuretic peptide (02/12/2018 6:13 PM)Only the most recent of5 resultswithin the time period is included. Component Value Ref Range BNP 249 (H) 0 - 100 pg/mL Specimen Performing Laboratory Blood [facility] DEPARTMENT OF PATHOLOGY AND GENOMIC MEDICINE [address] [place] [address] Comprehensive metabolic panel (02/12/2018 6:13 PM)Only the most recent of6 resultswithin the time period is included. Component Value Ref Range Sodium 139 135 - 148 mEq/L Potassium 3.7 3.5 - 5.0 mEq/L Chloride 100 98 - 112 mEq/L CO2 25 24 - 31 mEq/L Anion gap 14 7 - 15 mEq/L Comment: Starting from February , anion gap calculation no longer incorporates potassium. Please note the change. BUN 20 8 - 23 mg/dL Creatinine 1.1 0.7 - 1.2 mg/dL Glucose 131 (H) 65 - 99 mg/dL Calcium 8.7 (L) 8.8 - 10.2 mg/dL Protein 6.7 6.3 - 8.3 g/dL Comment: Proctor 4.6-7.0 g/dL 1 week 4.4-7.6 g/dL 7 months-1year5.1-7.3 g/dL 1-2 years5.6-7.5 g/dL >3 years6.0-8.0 g/dL 18-150 6.3-8.3 g/dL Albumin 3.1 (L) 3.5 - 5.0 g/dL A/G ratio 0.9 0.7 - 3.8 Alkaline phosphatase 69 40 - 129 U/L AST 13 10 - 50 U/L ALT 17 5 - 50 U/L Total bilirubin 1.3 (H) 0.0 - 1.2 mg/dL Specimen Performing Laboratory Plasma specimen [facility] DEPARTMENT OF PATHOLOGY AND GENOMIC MEDICINE [address] [place] [address] ECG 12 lead (02/12/2018 5:32 PM)Only the most recent of4 resultswithin the time period is included. Component Value Ref Range Ventricular rate 89 Atrial rate 89 GA interval 236 QRSD interval 136 QT interval 416 QTC interval 506 P axis 1 59 QRS axis 1 -57 T wave axis 96 EKG impression Sinus rhythm with 1st degree AV block with premature atrial complexes with aberrant conduction-Left axis deviation-Left ventricular hypertrophy with QRS widening and repolarization abnormality-Abnormal ECG-In automated comparison with ECG of 08-JUL-2017 16:29,-aberrant conduction is now present- Specimen Performing Laboratory [facility] M[facility] [address] [place] [address] POC glucose (12/06/2017 7:19 AM)Only the most recent of3 resultswithin the time period is included. Component Value Ref Range POC glucose 104 (H) 65 - 99 mg/dL Comment: No Action Needed Paul Notified RN MIRANDA Notified Meter ID: [id number] Core Assembly Supervisor: Bhavin Lugo Specimen Performing Laboratory [facility] DEPARTMENT OF PATHOLOGY AND GENOMIC MEDICINE [address] [place] [address] POC panel 4 (11/15/2017 9:52 AM) Component Value Ref Range POC sodium 140Comment: Testing performed on the ISTAT instrument 135 - 148 mEq/L by FRENCH Nina [id number] POC potassium 3.8 3.5 - 5.0 mEq/L POC hematocrit 33 (L) 41 - 51 % POC glucose 123 (H) 65 - 99 mg/dL Specimen Performing Laboratory [facility] DEPARTMENT OF PATHOLOGY AND GENOMIC MEDICINE [address] [place] [address] IOL Master - OU - Both Eyes (10/14/2017 2:51 PM) Component Value Ref Range Axial Length-OD 23.96 Axial Length-OS 23.99 Anterior Chamber Depth-OD 3.04 Anterior Chamber Depth-OS 3.17 White to White-OD 12.3 White to White-OS 12.3 Narrative Right Eye Lens style: PCBOO LRI @ 21 for 1.26 D cyl. Lens power: +23.5. Axial length was 23.96. White to white was 12.3. AC Depth was 3.04. Left Eye Lens style: PCBOO LRI @ 152 for 1.15 D cyl. Lens power: +23.5. Target refraction: -0.5. Axial length was 23.99. White to white was 12.3. AC Depth was 3.17. Notes IOL CALCULATION ORDER SHEET DATE OF TESTIN10/14/17 DATE OF SURGERY: ODOS RK PRK LASIK SILICONEOIL SCLERAL BUCKLE PKP CONTACT LENSES: DATE LAST WORN:TYPE:RGP: SOFT: DOMINANT EYE: TARGET REFRACTION: ODOS TESTING RESULTS: OD OS K1 K2 AXIS TOTAL CYL K1 K2 AXIS TOTAL CYL AUTO K 40.75 42.00 20 1.25 40.75 42.00 145 1.25 IOLMASTER 40.80 42.07 21 1.26 40.84 41.99 152 1.15 ATLAS GALILEI SimK GALILEI TCP AXIAL LENGTH (in mm) OD OS IOL MASTER 23.96 23.99 SONOMED/ACCUTOME IMMERSION Dr BeaverDr. Avelino HERNANDEZ FINAL IOL LENS CHOICE:OD OS BACKUP LENS :OD OS Cryoglobulin Screen with Reflex to Cryoglobulin Profile (10/02/2017 9:11 AM) Component Value Ref Range Cryoglobulin TNP Comment: * Unable to report due to sample * * processing failure. Submission * * of a new sample is required for* * testing. * Specimen Performing Laboratory [facility] Narrative FASTING:YES ANCA SCREEN WITH REFLEX TO ANCA TITER (10/02/2017 9:11 AM) Component Value Ref Range ANCA screen NEGATIVE NEGATIVE Comment: ANCA Screen includes evaluation for p-ANCA, c-ANCA and atypical p-ANCA. A positive ANCA screen reflexes to titer and pattern(s), e.g., cytoplasmic pattern (c-ANCA), perinuclear pattern (p-ANCA), or atypical p-ANCA pattern. c-ANCA and p-ANCA are observed in vasculitis, whereas atypical p-ANCA is observed in IBD (Inflammatory Bowel Disease). Atypical p-ANCA is detected in about 55% to 80% of patients with ulcerative colitis but only 5% to 25% of patients with Crohn's disease. P-ANCA titer TNP titer Comment: TNP-Reflex testing not required. C-ANCA titer TNP titer Comment: TNP-Reflex testing not required. Atypical P-ANCA titer TNP titer Comment: TNP-Reflex testing not required. Specimen Performing Laboratory [facility] Narrative FASTING:YES DANIEL SCREEN W IFA W REFLEX TO TITER (10/02/2017 9:11 AM) Component Value Ref Range DANIEL screen NEGATIVE NEGATIVE Comment: DANIEL IFA is a first line screen for detecting the presence of up to approximately 150 autoantibodies in various autoimmune diseases. A negative DANIEL IFA result suggests DANIEL-associated autoimmune diseases are not present at this time. Visit Physician FAQs for interpretation of all antibodies in the [place], prevalence, and association with diseases at http://education.[email or web address]/ faq/ETC605 Specimen Performing Laboratory [facility] Narrative FASTING:YES Hepatitis C antibody (10/02/2017 9:11 AM) Component Value Ref Range Hepatitis C Ab NON-REACTIVE NON-REACTIVE Signal/cutoff 0.11 <1.00 Specimen Performing Laboratory [facility] Narrative FASTING:YES Hepatitis B core antibody total (10/02/2017 9:11 AM) Component Value Ref Range Hepatitis B core total Ab NON-REACTIVE NON-REACTIVE Specimen Performing Laboratory [facility] Narrative FASTING:YES Hepatitis B surface antibody (10/02/2017 9:11 AM) Component Value Ref Range Hepatitis B surface Ab NON-REACTIVE NON-REACTIVE Specimen Performing Laboratory [facility] Narrative FASTING:YES Hepatitis B surface antigen (10/02/2017 9:11 AM) Component Value Ref Range Hepatitis B surface Ag NON-REACTIVE NON-REACTIVE Specimen Performing Laboratory [facility] Narrative FASTING:YES C-reactive protein (10/02/2017 9:11 AM)Only the most recent of2 resultswithin the time period is included. Component Value Ref Range CRP 1.0 <8.0 mg/L Specimen Performing Laboratory [facility] Narrative FASTING:YES MRA Neck Wo Contrast (09/29/2017 3:23 PM) Specimen Performing Laboratory [facility] [address] [place] [address] Narrative EXAMINATION:MRA NECK WO CONTRAST CLINICAL HISTORY:H53.9 Unspecified visual disturbance, I67.9 Cerebrovascular diseaseunspecified, h o stroketransient vision losscarotid occlusion COMPARISON:None. TECHNIQUE: [id number]-sx-[id number] MR angiography was performed without contrast and includes 3-D MIP image reconstructions FINDINGS: There are some motion artifacts. The visualized distal cervical common carotid artery segments and their bifurcations are patent. The carotid bulbs and the visualized cervical internal carotid arteries are patent and show no significant stenosis by NASCET criteria. There is bilateral vertebral artery patency. There is no gross intimal dissection. IMPRESSION: No definite internal carotid artery stenosis by NASCET criteria. Vertebral artery patency. [facility]-[id number] Procedure Note Hm Interface, Radiology Results Incoming - 09/29/2017 4:10 PM CDT EXAMINATION: MRA NECK WO CONTRAST CLINICAL HISTORY: H53.9 Unspecified visual disturbance, I67.9 Cerebrovascular disease unspecified, h o stroke transient vision loss carotid occlusion COMPARISON: None. TECHNIQUE: [id number]-wv-[id number] MR angiography was performed without contrast and includes 3-D MIP image reconstructions FINDINGS: There are some motion artifacts. The visualized distal cervical common carotid artery segments and their bifurcations are patent. The carotid bulbs and the visualized cervical internal carotid arteries are patent and show no significant stenosis by NASCET criteria. There is bilateral vertebral artery patency. There is no gross intimal dissection. IMPRESSION: No definite internal carotid artery stenosis by NASCET criteria. Vertebral artery patency. [facility]-[id number] MRA Head Wo Contrast (09/29/2017 3:05 PM) Specimen Performing Laboratory [facility] [address] [place] [address] Narrative EXAMINATION:MRA HEAD WO CONTRAST CLINICAL HISTORY:H53.9 Unspecified visual disturbance, I67.9 Cerebrovascular diseaseunspecified, h o stroketransient vision losscarotid occlusion COMPARISON:None. TECHNIQUE: Licb-mi-jefluz MR angiography was performed without contrast and includes 3-D MIP image reconstructions FINDINGS: The distal cervical, petrous, and cavernous segments of the internal carotid arteries are patent. The distal cervical vertebral artery segments and the basilar artery are patent. There are multiple areas of focal segmental stenosis involving the bilateral anterior, middle, and posterior cerebral artery may trunks with several areas of moderate stenosis of the M2 branches bilaterally. Because some of the areas of stenosis are not associated with mild peripheral dilatation of the lumen, I cannot completely exclude underlying vasculitis. Please correlate clinically. There is no definite aneurysm. 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 Differential diagnosis includes atherosclerotic disease versus vasculitis. Please correlate clinically [facility]-[id number] Procedure Note [facility], Radiology Results Incoming - 09/29/2017 4:09 PM CDT EXAMINATION: MRA HEAD WO CONTRAST CLINICAL HISTORY: H53.9 Unspecified visual disturbance, I67.9 Cerebrovascular disease unspecified, h o stroke transient vision loss carotid occlusion COMPARISON: None. TECHNIQUE: Frwb-xm-zmnzzs MR angiography was performed without contrast and includes 3-D MIP image reconstructions FINDINGS: The distal cervical, petrous, and cavernous segments of the internal carotid arteries are patent. The distal cervical vertebral artery segments and the basilar artery are patent. There are multiple areas of focal segmental stenosis involving the bilateral anterior, middle, and posterior cerebral artery may trunks with several areas of moderate stenosis of the M2 branches bilaterally. Because some of the areas of stenosis are not associated with mild peripheral dilatation of the lumen, I cannot completely exclude underlying vasculitis. Please correlate clinically. There is no definite aneurysm. 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 Differential diagnosis includes atherosclerotic disease versus vasculitis. Please correlate clinically [facility]-[id number] Cytology (non-gynecological) request (08/25/2017 4:14 PM) Component Value Ref Range Cytology (non-gynecological) report See link below for PDF Lab Report Specimen Performing Laboratory [facility] DEPARTMENT OF PATHOLOGY AND GENOMIC MEDICINE [address] [place] [address] US Thyroid Biopsy (08/25/2017 2:32 PM) Specimen Performing Laboratory [facility] [address] [place] [address] Narrative EXAMINATION:US THYROID BIOPSY CLINICAL INDICATION:E04.1 Nontoxic single thyroid nodule, calcified left thyroid nodule TECHNIQUE: The risks, benefits, and alternatives were discussed with the patient and written informed consent was obtained. A time-out site and side procedure was performed. A site for needle entry was selected and the skin was prepped and draped in the usual sterile fashion. After local administration of 1% buffered lidocaine, and using ultrasound guidance, 5 x 22-gauge FNA samples were obtained from the dominant calcified 1.5 cm thyroid nodule. The specimens were reviewed with pathology and were deemed adequate.Of note, the exam was made difficult given the patient's respirations with movement of the nodule as well as the nodule's deep positioning. The patient was discharged to the radiology recovery area for monitoring prior to discharge and was instructed to follow-up with the referring physician for the biopsy results. EBL: None. Complications: None apparent. Assistants: None. IMPRESSION: Successful ultrasound guided biopsy of partially calcified left thyroid nodule as described. Thank you for allowing us to participate in the care of your patient. [facility]-[id number] Procedure Note Interface, Radiology Results Incoming - 08/25/2017 3:01 PM CDT EXAMINATION: US THYROID BIOPSY CLINICAL INDICATION: E04.1 Nontoxic single thyroid nodule, calcified left thyroid nodule TECHNIQUE: The risks, benefits, and alternatives were discussed with the patient and written informed consent was obtained. A time-out site and side procedure was performed. A site for needle entry was selected and the skin was prepped and draped in the usual sterile fashion. After local administration of 1% buffered lidocaine, and using ultrasound guidance, 5 x 22-gauge FNA samples were obtained from the dominant calcified 1.5 cm thyroid nodule. The specimens were reviewed with pathology and were deemed adequate. Of note, the exam was made difficult given the patient's respirations with movement of the nodule as well as the nodule's deep positioning. The patient was discharged to the radiology recovery area for monitoring prior to discharge and was instructed to follow-up with the referring physician for the biopsy results. EBL: None. Complications: None apparent. Assistants: None. IMPRESSION: Successful ultrasound guided biopsy of partially calcified left thyroid nodule as described. Thank you for allowing us to participate in the care of your patient. [facility]-[id number] NM Lung Ventilation Perfusion (08/25/2017 10:32 AM) Specimen Performing Laboratory [facility] [address] [place] [address] Narrative CLINICAL HISTORY: R06.02 Shortness of breath, R06.02 TECHNIQUE: The patient breathed 15-20 mCi of xenon-133 gas through a closed ventilation system while dynamic imaging of the lungs was performed in the posterior and anterior projections. The patient was then injected with 5 mCi of [id number] intravenously, followed by imaging of the lungs in anterior, posterior, and oblique projections. FINDINGS: Mildly heterogeneous perfusion and ventilation bilaterally. IMPRESSION: Very Low Probability for pulmonary embolism. [facility]-[id number] Procedure Note Interface, Radiology Results Incoming - 08/25/2017 11:16 AM CDT CLINICAL HISTORY: R06.02 Shortness of breath, R06.02 TECHNIQUE: The patient breathed 15-20 mCi of xenon-133 gas through a closed ventilation system while dynamic imaging of the lungs was performed in the posterior and anterior projections. The patient was then injected with 5 mCi of [id number] intravenously, followed by imaging of the lungs in anterior, posterior, and oblique projections. FINDINGS: Mildly heterogeneous perfusion and ventilation bilaterally. IMPRESSION: Very Low Probability for pulmonary embolism. [facility]-[id number] US Thyroid (08/13/2017 2:30 PM) Specimen [facility] [address] [place] [address] Narrative EXAMINATION:US THYROID CLINICAL HISTORY:E07.9 Disorder of thyroidunspecified, thyroid mass on outside imaging COMPARISON:None. IMPRESSION: 1.The right thyroid lobe measures 4.7 x 2.0 x 1.8 cm. It is heterogeneous in echotexture with no focal masses. There is a hypoechoic nodule measuring 8 x 5 x 9 mm long the inferior pole. There is a vaguely defined hypoechoic area at the mid gland level measuring approximately 1.6 x 1.1 cm however this more likely relates to heterogeneous tissue rather than a true nodule. Surveillance may be of benefit. 2.The isthmus measures 4 mm in thickness. 3.The left thyroid lobe measures 4.5 x 2.4 x 1.8 cm. It is slightly heterogeneous in echotexture. There is a rim calcified lesion in the left thyroid lobe measuring 2.3 x 1.9 x 1.3 cm. Ultrasound-guided FNA may be of benefit. [facility]-[id number] Procedure Note Interface, Radiology Results Incoming - 08/13/2017 4:21 PM CDT EXAMINATION: US THYROID CLINICAL HISTORY: E07.9 Disorder of thyroid unspecified, thyroid mass on outside imaging COMPARISON: None. IMPRESSION: 1. The right thyroid lobe measures 4.7 x 2.0 x 1.8 cm. It is heterogeneous in echotexture with no focal masses. There is a hypoechoic nodule measuring 8 x 5 x 9 mm long the inferior pole. There is a vaguely defined hypoechoic area at the mid gland level measuring approximately 1.6 x 1.1 cm however this more likely relates to heterogeneous tissue rather than a true nodule. Surveillance may be of benefit. 2. The isthmus measures 4 mm in thickness. 3. The left thyroid lobe measures 4.5 x 2.4 x 1.8 cm. It is slightly heterogeneous in echotexture. There is a rim calcified lesion in the left thyroid lobe measuring 2.3 x 1.9 x 1.3 cm. Ultrasound-guided FNA may be of benefit. [facility]-[id number] Myocardial perfusion (07/11/2017 8:08 AM) Specimen Performing Laboratory [facility] [address] Nuclear Cardiology and Cardiac CT [address] [place] [address] Myocardial Perfusion Imaging Report Stress ECG tracings are available in [employer], [employer] and [employer] All ECG interpretations are included in this report Pat.Name:Ryann BENITEZ.ID:[id number] .Date: 07/10/2017 Refer.MD:SHERRI QUEZADA MD Exam Time: 8:20:00 AM Study Type:Myocardial Perfusion Imaging Height:70inWeight:269lb BSA: 2.37 m2 DOBAge:1935,82Y Sex: MALEBP:187/86 HR:70 bpm Nuclear Tech:ASHUTOSH Campos/ ASHUTOSH Klein, ARRT Pat. Stat.:OutpatientRoom:J808 Nuclear Event ID:[id number] Order ID:[id number] Reason for Study:Stroke History / Clinical:COPD, Diabetes, Family history CAD, Hyperlipidemia, Hypertension, Pulmonary hypertension, Transient ischemic attack/CVA Procedures:Two Day Stress / Rest Race:C Risk Factors:Prior MA, TIA/Stroke, Obesity, Family history of cardiovascular disease Clinical Symptoms:Regadenoson Physical Exam:S1, S2 Surgery: Serum K+ Date,K+3.7 07/10/17; BUN/CR19/0.9 07/10/17; TROP<.3X2 07/08/17 / Medications:Aspirin, Lovenox, Metoprolol, Plavix SUMMARY: SCINTIGRAPHIC RESULTS Perfusion Defect Size (% LV) 12% Total 0% Npqkqvca16% Scar Left Ventricular Perfusion Results There is a mild mid inferior, basal inferior, basal inferolateral perfusion defect during stress which remains unchanged with rest imaging. Gated SPECT Results The post stress left ventricular ejection fraction is 46% with mid and basal inferior wall hypokinesis.apical wall motion.Left ventricular end-diastolic volume is 264 ml; end-systolic volume is 142 ml.The left ventricle is enlarged at stress and rest. Conclusion Abnormal regadenoson Tc-99m tetrofosmin myocardial perfusion study compatible with scar in the possibly right vscircumflex coronary artery vascular territory. The LVEF is mildly depressed.The RVEF is normal.LVhypertrophy ,LV dilation are present. Comments The study results indicate a intermediate (1%-2%) annual risk for a cardiac or non-fatal myocardial infarction. Study Quality/Artifacts The study quality is fair. Comparison to Previous Study None available. STRESS: Baseline Vital Signs:Intervention: Regadenoson 0.4mg/5ml IV over 10 seconds followed by radiotracer injection and 5ml saline flush ECG: Normal Sinus Rhythm HR:70 BP:187/86 Stress Test Results: Target HR: 118 Symptoms and Complications: Symptoms:Flushing, Shortness of breath Stress ECG Interp: Minimal ST segment change occurred with stress which is not diagnostic ofischemia Signed 07/11/2017 01:14 PM Allyson Brewster MD Procedure Note Interface, Radiology Results In - 07/11/2017 1:16 PM CDT Nuclear Cardiology and Cardiac CT [address] [place] [address] Myocardial Perfusion Imaging Report Stress ECG tracings are available in [employer], [employer] and [employer] All ECG interpretations are included in this report Pat.Name: CHRISTINE BENITEZ Pat.ID: [id number] St.Date: 07/10/2017 Refer.MD: SHERRI QUEZADA MD Exam Time: 8:20:00 AM Study Type:Myocardial Perfusion Imaging Height: 70in Weight: 269lb BSA: 2.37 m2 Age: 6 1935,82Y Sex: MALE BP: 187/86 HR: 70 bpm Nuclear Tech:ASHUTOSH Campos/ ASHUTOSH Klein, ARRT Pat. Stat.:Outpatient Room: [facility] Nuclear Event ID:[id number] Order ID: [id number] Reason for Study:Stroke History / Clinical:COPD, Diabetes, Family history CAD, Hyperlipidemia, Hypertension, Pulmonary hypertension, Transient ischemic attack/CVA Procedures:Two Day Stress / Rest Race: C Risk Factors:Prior MA, TIA/Stroke, Obesity, Family history of cardiovascular disease Clinical Symptoms:Regadenoson Physical Exam:S1, S2 Surgery: Serum K+ Date, K+3.7 07/10/17; BUN/CR19/0.9 07/10/17; TROP<.3X2 07/08/17 / Medications:Aspirin, Lovenox, Metoprolol, Plavix SUMMARY: SCINTIGRAPHIC RESULTS Perfusion Defect Size (% LV) 12% Total 0% Ischemia 12% Scar Left Ventricular Perfusion Results There is a mild mid inferior, basal inferior, basal inferolateral perfusion defect during stress which remains unchanged with rest imaging. Gated SPECT Results The post stress left ventricular ejection fraction is 46% with mid and basal inferior wall hypokinesis. apical wall motion. Left ventricular end-diastolic volume is 264 ml; end-systolic volume is 142 ml. The left ventricle is enlarged at stress and rest. Conclusion Abnormal regadenoson Tc-99m tetrofosmin myocardial perfusion study compatible with scar in the possibly right vs circumflex coronary artery vascular territory. The LVEF is mildly depressed. The RVEF is normal. LV hypertrophy , LV dilation are present. Comments The study results indicate a intermediate (1%-2%) annual risk for a cardiac or non-fatal myocardial infarction. Study Quality/Artifacts The study quality is fair. Comparison to Previous Study None available. STRESS: Baseline Vital Signs: Intervention: Regadenoson 0.4mg/5ml IV over 10 seconds followed by radiotracer injection and 5ml saline flush ECG: Normal Sinus Rhythm HR: 70 BP: 187/86 Stress Test Results: Target HR: 118 Symptoms and Complications: Symptoms: Flushing, Shortness of breath Stress ECG Interp: Minimal ST segment change occurred with stress which is not diagnostic of ischemia Signed 07/11/2017 01:14 PM Allyson Brewster MD XR Chest 1 Vw Portable (07/10/2017 4:55 PM) Specimen Performing Laboratory [facility] [address] [place] [address] Narrative EXAMINATION:XR CHEST 1 VW PORTABLE CLINICAL HISTORY:Congestive Heart Failure COMPARISON:May 26 IMPRESSION: The cardiomediastinal silhouette and central vasculature are within normal limits. Atherosclerotic calcifications in the thoracic aorta which is tortuous. The lungs are clear. Degenerative changes in the spine. [facility]-[id number] Procedure Note Interface, Radiology Results Incoming - 07/10/2017 5:15 PM CDT EXAMINATION: XR CHEST 1 VW PORTABLE CLINICAL HISTORY: Congestive Heart Failure COMPARISON: May 26 IMPRESSION: The cardiomediastinal silhouette and central vasculature are within normal limits. Atherosclerotic calcifications in the thoracic aorta which is tortuous. The lungs are clear. Degenerative changes in the spine. [facility]-[id number] CV stress test (07/10/2017 8:53 AM) Component Value Ref Range Resting HR 69 Resting BP 187 Peak MET Achieved 1.0 Protocol Name DELLA Time in Exercise Phase 00:01:00 Max Systolic BP 187 Max Diastolic BP 86 Max Heart Rate 76 Max Predicted Heart Rate 139 Target HR Formula (220 - Age)*100% Test Indication Screening for CAD Arrhy During Ex ECG Interp Before EX ECG Interp During Ex Ex Summary Comment Overall HR Response to Exercise Overall BP Response To Exercise Reason for Termination Stress Test Impression -Waveform interpreted in report associated with image study. No interpretation is provided as part of this Stress ECG report.-Electronically Signed By Ney LEDESMA, Allyson Jeffrey ([id number]), associate entertainment editor Jimena Castro ([id number]) on 07/10/2017 1:47:36 PM Specimen Performing Laboratory [facility] [address] [place] [address] EEG (routine) (07/09/2017 10:34 AM) Narrative EEG AWAKE AND DROWSY Date of Service: 07/09/17 Awake Recording: The occipital dominant rhythm is 7-8 Hz. 5-7 Hz activity was present in all regions. 18-22 Hz activity is present in all regions. Sleep Recording:No sleep was recorded. Hyperventilation: Not performed. Photic Stimulation: No abnormality elicited. Impression The background activity is mildly diffusely slow. The findings are consistent with a mild diffuse disturbance in brain function. No lateralized on epileptiform activity was recorded. ICD-10 Code: R569 MRI Brain Wo Contrast (07/08/2017 9:39 PM)Only the most recent of2 resultswithin the time period is included. Specimen Performing Laboratory [facility] [address] [place] [address] Narrative EXAMINATION: MRI BRAIN WO CONTRAST CLINICAL HISTORY: NEURO DEFICITACUTESINGLEPROGRESSING, STROKE COMPARISON:MRI brain 02/25/2017; CT head same date. TECHNIQUE: Multiplanar and multisequence MRI imaging of the brain was obtained without contrast. FINDINGS: No evidence of acute intracranial hemorhage, mass, mass effect, acute infarct or midline shift.Focus of encephalomalacia involving the left periventricular white matter. Suspected tiny remote lacunar infarct in left basal ganglia. Minimal subcortical and periventricular white matter T2 FLAIR hyperintensity likely reflecting mild chronic microvascular ischemic changes. Ventricles and sulci are normal in appearance for patient's age. Punctate focus of increased susceptibility and the posterior left frontal lobe which may reflect remote microhemorrhage. Basal cisterns are clear. Major intracranial flow voids are maintained. Orbits are normal in appearance. Visualized paranasal sinuses and mastoid air cells are clear. IMPRESSION: 1. No acute intracranial abnormality. 2. 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 [id number] Procedure Note Hm Interface, Radiology Results Incoming - 07/08/2017 10:48 PM CDT EXAMINATION: MRI BRAIN WO CONTRAST CLINICAL HISTORY: NEURO DEFICIT ACUTE SINGLE PROGRESSING, STROKE COMPARISON: MRI brain 02/25/2017; CT head same date. TECHNIQUE: Multiplanar and multisequence MRI imaging of the brain was obtained without contrast. FINDINGS: No evidence of acute intracranial hemorhage, mass, mass effect, acute infarct or midline shift. Focus of encephalomalacia involving the left periventricular white matter. Suspected tiny remote lacunar infarct in left basal ganglia. Minimal subcortical and periventricular white matter T2 FLAIR hyperintensity likely reflecting mild chronic microvascular ischemic changes. Ventricles and sulci are normal in appearance for patient's age. Punctate focus of increased susceptibility and the posterior left frontal lobe which may reflect remote microhemorrhage. Basal cisterns are clear. Major intracranial flow voids are maintained. Orbits are normal in appearance. Visualized paranasal sinuses and mastoid air cells are clear. IMPRESSION: 1. No acute intracranial abnormality. 2. 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 [id number] Hemoglobin A1c (07/08/2017 7:35 PM)Only the most recent of2 resultswithin the time period is included. Component Value Ref Range Hemoglobin A1C 6.6 (H) 4.0 - 5.6 % Comment: HbA1c cutoffs for diagnosing diabetes: 4.0% - 5.6%=normal 5.7% - 6.4%=increased risk for diabetes (prediabetes) >=6.5%=diabetes Goals for glycemic control (ADA 2016) < 7.0%Target for non adults with diabetes. More or less stringent targets may be appropriate for individual patients. <7.5% Target for Children and adolescents with type 1 diabetes. Specimen Performing Laboratory Blood [facility] [address] [address] Folate RBC (group test) (07/08/2017 7:35 PM) Component Value Ref Range RBC folate 804 499 - 1,504 ng/mL Specimen Performing Laboratory Blood [facility] [address] [address] Vitamin B12 level (07/08/2017 7:35 PM) Component Value Ref Range Vitamin B12 194 (L) 211 - 946 pg/mL Comment: Significant overlap exists between normal and deficiency states. However, most patients with deficiencies will have Serum B12 <200 pg/mL. Specimen Performing Laboratory Serum [facility] [address] [address] Thyroid stimulating hormone (07/08/2017 7:09 PM)Only the most recent of3 resultswithin the time period is included. Component Value Ref Range TSH 1.16 0.27 - 4.20 uIU/mL Specimen Performing Laboratory Plasma specimen [facility] [address] [address] T4, free (07/08/2017 7:09 PM)Only the most recent of3 resultswithin the time period is included. Component Value Ref Range T4, free 1.3 0.9 - 1.7 ng/dL Specimen Performing Laboratory Plasma specimen [facility] [address] [address] Lipid panel (07/08/2017 7:09 PM)Only the most recent of3 resultswithin the time period is included. Component Value Ref Range Cholesterol 119 <200 mg/dL Triglycerides 107 <150 mg/dL HDL cholesterol 50 >40 mg/dL LDL cholesterol 53Comment: Result obtained by direct LDL <100 mg/dL measurement Lipid panel interpretation SeeBelow Comment: Total Cholesterol (mg/dL) <200 Desirable 067-175Uoydzcacvb-eofb >=240High Triglycerides (mg/dL) <150 Normal [phone]-jinb 200-499High >=500Very high HDL Cholesterol (mg/dL) <40Low (male) <40Low (female) LDL Cholesterol (mg/dL) <100 Optimal 100-129Near or above optimal [phone]-xnpu 160-189High >=190Very high Risk Catergories that modify LDL goals. Risk CatergoriesLDL goal (mg/dL) CHD and CHD risk equivalent<100 (10-year risk >20%) Multiple (2+) risk factors <130 (10-year risk=<20%) 0-1 risk factors <160 (<10-year risk) Defining levels of lipids in metabolic syndrome Triglycerides>=150 mg/dL HDL Cholesterol Men<40 mg/dL Women<40 mg/dL Non-HDL cholesterol is a second target for therapy in persons with high triglycerides (>=200 mg/dL) Specimen Performing Laboratory Plasma specimen [facility] DEPARTMENT OF PATHOLOGY AND GENOMIC MEDICINE [address] [place] [id number] Cervical Spine Wo Contrast (07/08/2017 4:53 PM) Specimen Performing Laboratory [facility] [address] [place] [address] Narrative Procedure:CT CERVICAL SPINE WO CONTRAST REFERRING PHYSICIAN:ANIL STEVENSON HISTORY:fall COMPARISON: 11/27/2011. TECHNIQUE: Multiple helical axial images of the cervical spine. Additional sagittal and coronal reformat images were acquired. All CT scan performed using radiation dose reduction techniques. Technical factors are evaluated and adjusted to ensure appropriate moderation of exposure. Automated dose management technology is applied to adjust the radiation dose to minimize expose whileachieving a diagnostic quality image. FINDINGS: Sagittal evaluation of the cervical spine demonstrates normal alignment cervical vertebrae. The vertebral body heights are maintained. Postsurgical change of anterior discectomy with anterior fixation and interval fusion at C3-C5 are noted.. The anterior cortical screws are intact. The intervertebral bone grafts are also in intact. Multilevel spurring is noted. Osteopenia is noted. No articular pillar defect is seen. Prevertebral soft tissue is within normal limits. Axial evaluation of the cervical spine demonstrates moderate multilevel bilateral neural foramen narrowing secondary to uncovertebral hypertrophy and articular facet hypertrophy is noted. No significant central canal stenosis is seen. No fracture is seen. No evidence of paraspinal hematoma. Approximately 1.4 cm partial calcified left thyroid nodule is noted. IMPRESSION: No CT evidence acute fracture or subluxation of the cervical spine. [id number] Procedure Note Interface, Radiology Results Incoming - 07/08/2017 5:06 PM CDT Procedure:CT CERVICAL SPINE WO CONTRAST REFERRING PHYSICIAN:ANIL STEVENSON HISTORY:fall COMPARISON: 11/27/2011. TECHNIQUE: Multiple helical axial images of the cervical spine. Additional sagittal and coronal reformat images were acquired. All CT scan performed using radiation dose reduction techniques. Technical factors are evaluated and adjusted to ensure appropriate moderation of exposure. Automated dose management technology is applied to adjust the radiation dose to minimize expose while achieving a diagnostic quality image. FINDINGS: Sagittal evaluation of the cervical spine demonstrates normal alignment cervical vertebrae. The vertebral body heights are maintained. Postsurgical change of anterior discectomy with anterior fixation and interval fusion at C3-C5 are noted.. The anterior cortical screws are intact. The intervertebral bone grafts are also in intact. Multilevel spurring is noted. Osteopenia is noted. No articular pillar defect is seen. Prevertebral soft tissue is within normal limits. Axial evaluation of the cervical spine demonstrates moderate multilevel bilateral neural foramen narrowing secondary to uncovertebral hypertrophy and articular facet hypertrophy is noted. No significant central canal stenosis is seen. No fracture is seen. No evidence of paraspinal hematoma. Approximately 1.4 cm partial calcified left thyroid nodule is noted. IMPRESSION: No CT evidence acute fracture or subluxation of the cervical spine. [id number] Prothrombin time with INR (07/08/2017 4:45 PM)Only the most recent of2 resultswithin the time period is included. Component Value Ref Range Prothrombin time 14.0 12.0 - 15.0 sec INR 1.1 Comment: The International Normalized Ratio (INR) is a therapeutic monitoring tool for patients who are stable on oral anticoagulant therapy. An INR of 2.0-3.0 is suggested for deep vein thrombosis/pulmonary embolism. Specimen Performing Laboratory Blood [facility] DEPARTMENT OF PATHOLOGY AND GENOMIC MEDICINE [address] [place] [address] CT Head Wo Contrast (07/08/2017 4:35 PM)Only the most recent of2 resultswithin the time period is included. Specimen Performing Laboratory [facility] [address] [place] [address] Narrative EXAMINATION:CT HEAD WO CONTRAST CT IMAGING WAS PERFORMED WITH ITERATIVE RECONSTRUCTION TECHNIQUE AND/OR AUTOMATED EXPOSURE CONTROL TO REDUCE RADIATION DOSE. CLINICAL HISTORY:syncope COMPARISON:CT brain February 26, 2017. FINDINGS: 1.There is no acute abnormality demonstrated. Specifically there is no hemorrhage, mass effect or acute infarction. 2. There are mild nonspecific cerebral white matter microvascular changes. There is chronic lacunar infarction in the posterior reyes radiata region on the left. There is tiny chronic lacunar infarction versus perivascular space in the inferior basal ganglia region on the left. There is chronic lacunar infarction in the anterior caudate nucleus on the right. 3.There is mild to moderate cerebral cortical volume loss and mild cerebellar volume loss. 4.There is minimal calcification in the thalamus on the left. Atherosclerotic calcifications noted in the distal internal carotid and to a lesser degree vertebral arteries. 5.There is mild mucosal thickening in the maxillary sinus on the left. There is a tiny retention maxillary sinus on the right. There is minimal mucosal thickening in the ethmoid and sphenoid sinuses IMPRESSION: No acute abnormality demonstrated and no significant change from the prior examination. [facility]-[id number] Procedure Note Interface, Radiology Results Incoming - 07/08/2017 4:50 PM CDT EXAMINATION: CT HEAD WO CONTRAST CT IMAGING WAS PERFORMED WITH ITERATIVE RECONSTRUCTION TECHNIQUE AND/OR AUTOMATED EXPOSURE CONTROL TO REDUCE RADIATION DOSE. CLINICAL HISTORY: syncope COMPARISON: CT brain February 26, 2017. FINDINGS: 1. There is no acute abnormality demonstrated. Specifically there is no hemorrhage, mass effect or acute infarction. 2. There are mild nonspecific cerebral white matter microvascular changes. There is chronic lacunar infarction in the posterior reyes radiata region on the left. There is tiny chronic lacunar infarction versus perivascular space in the inferior basal ganglia region on the left. There is chronic lacunar infarction in the anterior caudate nucleus on the right. 3. There is mild to moderate cerebral cortical volume loss and mild cerebellar volume loss. 4. There is minimal calcification in the thalamus on the left. Atherosclerotic calcifications noted in the distal internal carotid and to a lesser degree vertebral arteries. 5. There is mild mucosal thickening in the maxillary sinus on the left. There is a tiny retention maxillary sinus on the right. There is minimal mucosal thickening in the ethmoid and sphenoid sinuses IMPRESSION: No acute abnormality demonstrated and no significant change from the prior examination. [facility]-[id number] XR Chest 2 Vw (05/26/2017 3:45 PM) Specimen Performing [facility] [address] [place] [address] Narrative EXAMINATION:XR CHEST 2 VW CLINICAL HISTORY:R06.09 Other forms of dyspnea, dyspnea on exertion XR CHEST 2 VWimages are submitted COMPARISON:NONE FINDINGS: Lines/tubes:None. Heart and mediastinum:Unremarkable Lungs:The lungs are well inflated and clear. There is no evidence of pneumonia or pulmonary edema. Pleura:Blunting of left costophrenic angle. Negative for pneumothorax. Bones:unremarkable. IMPRESSION: 1. Negative for acute cardiopulmonary disease. 2. Small left pleural effusion. [facility]-[id number] Procedure Note Interface, Radiology Results Incoming - 05/26/2017 4:37 PM CDT EXAMINATION: XR CHEST 2 VW CLINICAL HISTORY: R06.09 Other forms of dyspnea, dyspnea on exertion XR CHEST 2 VW images are submitted COMPARISON: NONE FINDINGS: Lines/tubes: None. Heart and mediastinum: Unremarkable Lungs: The lungs are well inflated and clear. There is no evidence of pneumonia or pulmonary edema. Pleura: Blunting of left costophrenic angle. Negative for pneumothorax. Bones: unremarkable. IMPRESSION: 1. Negative for acute cardiopulmonary disease. 2. Small left pleural effusion. [facility]-[id number] CTA Abdomen W Wo Contrast (03/05/2017 4:51 PM) Specimen Performing Laboratory [facility] [address] [place] [address] Narrative EXAMINATION:CT ANGIOGRAM ABDOMEN W WO CONTRAST CLINICAL HISTORY:Vasculopathy. r o pedro TECHNIQUE:Multiple CT angiographic images of the abdomen were obtained during intravenous administration of contrast. Multiple computerized reformatted images as well as 3-D volume rendered images were also obtained. Scan was performed using radiation dose reduction techniques. COMPARISON:Noncontrast CT February 07, 2017 IMPRESSION: CTA: 1.There are diffuse atherosclerotic calcifications throughout the aorta which is nonaneurysmal. The infrarenal aorta is mildly stenotic. 2.Two right renal arteries are seen off the aorta in close proximity. The slightly lower and more dominant artery shows mild ostial calcification without evidence of significant stenosis. Similar mild calcification is seen proximally in the single left renal artery also without significant narrowing. Couple of more peripheral branches demonstrate calcified plaques but appear adequately patent. No convincing evidence of significant renal artery stenosis. 3.Scattered calcifications also seen in the celiac axis and mesenteric arteries which are also adequately patent. Mild ostial stenosis is suggested in the celiac axis. Other Abdomen: 1. Unremarkable solid organs and gallbladder. 2.No free fluid. 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 [facility]-[id number] Procedure Note Interface, Radiology Results Incoming - 03/05/2017 5:05 PM CDT EXAMINATION: CT ANGIOGRAM ABDOMEN W WO CONTRAST CLINICAL HISTORY: Vasculopathy. r o pedro TECHNIQUE: Multiple CT angiographic images of the abdomen were obtained during intravenous administration of contrast. Multiple computerized reformatted images as well as 3-D volume rendered images were also obtained. Scan was performed using radiation dose reduction techniques. COMPARISON: Noncontrast CT February 07, 2017 IMPRESSION: CTA: 1.There are diffuse atherosclerotic calcifications throughout the aorta which is nonaneurysmal. The infrarenal aorta is mildly stenotic. 2.Two right renal arteries are seen off the aorta in close proximity. The slightly lower and more dominant artery shows mild ostial calcification without evidence of significant stenosis. Similar mild calcification is seen proximally in the single left renal artery also without significant narrowing. Couple of more peripheral branches demonstrate calcified plaques but appear adequately patent. No convincing evidence of significant renal artery stenosis. 3.Scattered calcifications also seen in the celiac axis and mesenteric arteries which are also adequately patent. Mild ostial stenosis is suggested in the celiac axis. Other Abdomen: 1. Unremarkable solid organs and gallbladder. 2.No free fluid. 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 [facility]-[id number] Urinalysis, automated with microscopy (03/02/2017 6:24 PM) Component Value Ref Range Color, UA Straw Appearance, UA Clear Specific gravity, UA 1.009 1.001 - 1.035 pH, UA 5.0 5.0 - 8.5 Protein, UA Negative Negative Glucose, UA Negative Negative Ketones, UA Negative Negative Bilirubin, UA Negative Negative Blood, UA Negative Negative Nitrite, UA Negative Negative Urobilinogen, UA <2.0 <2.0 Leukocyte esterase, UA Negative Negative WBC, UA None seen 0 - 1 /HPF RBC, UA <1 0 - 1 /HPF Bacteria, UA None seen None seen Yeast, UA None seen Yeast with pseudohyphae, UA None seen Specimen Performing Laboratory Urine [facility] DEPARTMENT OF PATHOLOGY AND GENOMIC MEDICINE [address] [place] [address], [place] [address] XR Abdomen 1 Vw Portable (03/01/2017 2:35 PM) Specimen Performing Laboratory [facility] [address] [place] [address] Narrative EXAMINATION:XR ABDOMEN 1 VW PORTABLE CLINICAL HISTORY:ABDOMINAL PAIN Bowel ileus COMPARISON:02/12/2017 IMPRESSION: 1.Bowel gas pattern is nonspecific, nonobstructive. There are no frankly dilated bowel loops. Air is present in the colon. 2.No plain film evidence of free air. 3.Degenerative changes in the spine and left hip. Right hip arthroplasty. [facility]-[id number] Procedure Note Interface, Radiology Results Incoming - 03/01/2017 3:57 PM CDT EXAMINATION: XR ABDOMEN 1 VW PORTABLE CLINICAL HISTORY: ABDOMINAL PAIN Bowel ileus COMPARISON: 02/12/2017 IMPRESSION: 1.Bowel gas pattern is nonspecific, nonobstructive. There are no frankly dilated bowel loops. Air is present in the colon. 2.No plain film evidence of free air. 3.Degenerative changes in the spine and left hip. Right hip arthroplasty. [facility]-[id number] Echocardiogram complete w contrast and 3D if needed (02/27/2017 11:16 AM) Specimen Performing Laboratory [facility] [address] [place] [address] Narrative Echocardiography Report [id number] [place] [address] Pat.Name:Ryann BENITEZ.ID:[id number] .Date: 02/27/2017Refer.MD:CASH GREER MD Exam Time: 10:23:00 AM Study Type:Routine Echo Height:72inWeight:263lb BSA: 2.4 y8OOBWeq:1935,81Y Sex: MALEBP:172/74 HR:66 bpm Sonogrphr: Melinda Anderson RDCS Pat. Stat.:Inpatient Room:[address] Study Status:Final Echo Event ID:[id number] Order ID:[id number] Reason for Study:HF - Re-eval of known HF (systolic or diastolic) with a change in clinical status or cardiac exam without a clear precipitating change in medication or diet; aortic stenosis superimposed History / Clinical:Congestive Heart Failure, Hyperlipidemia, Hypertension, Shortness of Breath, Stroke Procedures:2D Echo, Colorflow Doppler, 3D Echo, Strain Race:C SUMMARY: LV size is mildly enlarged. LV function is lower limits of normal. LA volume is mildly enlarged. Mild aortic regurgitation. Moderate aortic valve stenosis. LV filling pressure is normal. FINDINGS: LV: LV size is mildly enlarged. There is moderate eccentric LV hypertrophy.LV function is lower limits of normal. EstimatedEF is 50-54%. RV: RV size is normal. RV function is normal. RV wall motion is normal. LA: LA volume is mildly enlarged. RA: RA size is normal. AO: Aortic root diameter is normal. LEFTY: No pericardial effusion. AV: Mild thickening and calcification of AV leaflets. Moderate calcificationof aortic annulus. Cannot rule out bi- cuspid aorticvalve. Mild aortic regurgitation. Moderate aortic valvestenosis. Estimated mean aortic valve gradient 29 mmHgwith a valve area of 1.2 cm2. Aortic valve high velocityand pressure gradient is in part secondary to high flowstate. MV: No structural MV abnormalities noted. Mild mitral regurgitation. PV: Pulmonic valve not well seen. TV: No structural TV abnormalities noted. A trace of tricuspid regurgitation Gallo: LV relaxation is impaired. LV filling pressure is normal. Other:Insufficient TR jet to estimate PA systolic pressure. MEASUREMENTS: DOPPLER AV For Flow/BRAYAN AV pkVel 359.5 cm/s (100-170) AV AC/ET 0.4 AV mnVel 245 cm/Jasmin TVI 98.2 cm AV pkPG 51.7 mmHgAVpkAcRt 4834.5 cm/s2 AV Mean G 29.4 mmHgAV DeRt 897.1 cm/s2 AV AC172 msec (83-118) AV Area1.2 cm2(3-5) AV ET401 msec LVOT For Flow LVOT Area4.5 cm2 LVOT TVI 26.5 cm JKIArxXut854.9 cm/sLVOT SV 120 ml LVOTpkPG 4.9 duFoOV87 bpm LVOTmnPG 2.4 mmHgLVOT CO 7.8 l/min 2D Parasternal Long [place] LVOT 2.4 cmLVPWd1.4 cm LVIDd5.9 cmIndex 2.4 cm/m LA Ds4.2 cm LVIDs4.7 cmAo An2.7 cm LV%fs 20.3 % Ao Rtd 3.8 cm Index1.6 cm/m IVSd 1.4 cm LV EF SinglePlane LV Ad 52.4 cm2(9.5-22.3) LVESV 102.5 ml WUNKO808.5 ml (65-193) Index94 ml/m LV SV123 ml LV As 33.1 cm2(4-11.6) LV EF 54.6 %(63-77) LA Sng Plane LA Area 24.5 cm2(8.8-23.4) LA Vol86.1 ml Index35.9 ml/m LA LngAx 6 cm WALL MOTION: RESTING WALL MOTION: Basal Inferolateral, Mid Inferolateral shi are akinetic.Basal Inferior, Mid Inferior shi are hypokinetic. Normal in all other shi. Wall Index=1.4 Signed 02/27/2017 03:10 PM Hernandez Butcher M.D. Procedure Note Interface, Radiology Results In - 02/27/2017 3:10 PM CDT Echocardiography Report [id number] [facility] [address], [place] [address] [facility].Name: CHRISTINE BENITEZ Carmen.ID: [id number] .Date: 02/27/2017 Refer.MD: CASH GREER MD Exam Time: 10:23:00 AM Study Type:Routine Echo Height: 72in Weight: 263lb BSA: 2.4 m2 Age: 6 1935,81Y Sex: MALE BP: 172/74 HR: 66 bpm Sonogrphr: Melinda Anderson RDCS Pat. Stat.:Inpatient Room: [address] Study Status:Final Echo Event ID:[id number] Order ID: [id number] Reason for Study:HF - Re-eval of known HF (systolic or diastolic) with a change in clinical status or cardiac exam without a clear precipitating change in medication or diet; aortic stenosis superimposed History / Clinical:Congestive Heart Failure, Hyperlipidemia, Hypertension, Shortness of Breath, Stroke Procedures:2D Echo, Colorflow Doppler, 3D Echo, Strain Race: C SUMMARY: LV size is mildly enlarged. LV function is lower limits of normal. LA volume is mildly enlarged. Mild aortic regurgitation. Moderate aortic valve stenosis. LV filling pressure is normal. FINDINGS: LV: LV size is mildly enlarged. There is moderate eccentric LV hypertrophy. LV function is lower limits of normal. Estimated EF is 50-54%. RV: RV size is normal. RV function is normal. RV wall motion is normal. LA: LA volume is mildly enlarged. RA: RA size is normal. AO: Aortic root diameter is normal. LEFTY: No pericardial effusion. AV: Mild thickening and calcification of AV leaflets. Moderate calcification of aortic annulus. Cannot rule out bi-cuspid aortic valve. Mild aortic regurgitation. Moderate aortic valve stenosis. Estimated mean aortic valve gradient 29 mmHg with a valve area of 1.2 cm2. Aortic valve high velocity and pressure gradient is in part secondary to high flow state. MV: No structural MV abnormalities noted. Mild mitral regurgitation. PV: Pulmonic valve not well seen. TV: No structural TV abnormalities noted. A trace of tricuspid regurgitation Gallo: LV relaxation is impaired. LV filling pressure is normal. Other: Insufficient TR jet to estimate PA systolic pressure. MEASUREMENTS: DOPPLER AV For Flow/BRAYAN AV pkVel 359.5 cm/s (100-170) AV AC/ET 0.4 AV mnVel 245 cm/s AV TVI 98.2 cm AV pkPG 51.7 mmHg AVpkAcRt 4834.5 cm/s2 AV Mean G 29.4 mmHg AV DeRt 897.1 cm/s2 AV AC 172 msec (83-118) AV Area 1.2 cm2 (3-5) AV ET 401 msec LVOT For Flow LVOT Area 4.5 cm2 LVOT TVI 26.5 cm LVOTpkVel 110.9 cm/s LVOT SV 120 ml LVOTpkPG 4.9 mmHg HR 65 bpm LVOTmnPG 2.4 mmHg LVOT CO 7.8 l/min 2D Parasternal Long [place] LVOT 2.4 cm LVPWd 1.4 cm LVIDd 5.9 cm Index 2.4 cm/m LA Ds 4.2 cm LVIDs 4.7 cm Ao An 2.7 cm LV%fs 20.3 % Ao Rtd 3.8 cm Index 1.6 cm/m IVSd 1.4 cm LV EF SinglePlane LV Ad 52.4 cm2 (9.5-22.3) LVESV 102.5 ml LVEDV 225.5 ml (65-193) Index 94 ml/m LV SV 123 ml LV As 33.1 cm2 (4-11.6) LV EF 54.6 % (63-77) LA Sng Plane LA Area 24.5 cm2 (8.8-23.4) LA Vol 86.1 ml Index 35.9 ml/m LA LngAx 6 cm WALL MOTION: RESTING WALL MOTION: Basal Inferolateral, Mid Inferolateral shi are akinetic. Basal Inferior, Mid Inferior shi are hypokinetic. Normal in all other shi. Wall Index=1.4 Signed 02/27/2017 03:10 PM Hernandez Butcher M.D. Pv carotid duplex (02/27/2017 9:26 AM) Specimen Performing Laboratory [facility] [address] Vascular Ultrasound Laboratory Carotid Artery Duplex Report [address] [place] [address] For clinical quality assurance specialist purposes, the categorization of the degree of the stenosis of this exam is based on criteria described in the IAC carotid stenosis grading white paper( [email or web address]) and Payal Becker, Jasmyn Topete, et al. Carotid artery stenosis: mcgrath-scale and Doppler US diagnosis--Society of Radiologists in Ultrasound Consensus Conference. Radiology. 2003 Nov; 229(2):340-6. Pat.Name:Ryann BENITEZ.ID:[id number] .Date: 02/27/2017Refer.MD:SHERRI QUEZADA MD Exam Time: 8:50:00 AMStudy Type:Carotid Height:70inDOBAge:1934,[age]Y Sex: MALESonogrphr: Arnoldo Blanton RN, RVT Pat. Stat.:Inpatient Room:[facility] TapeVol: AZUL, CPT - 4: 34883 Echo Event ID:[id number] Order ID:[id number] Reason for Study:Unsteady gait and vertigo for 8days.Dysphagia. Race: SUMMARY: PHYSICAL ASSESSMENT BloodPulsesCarotid Pressure Carotid TemporalBruit Right 180/80 ++0 Left 178/80 ++0 CAROTID ARTERY SCAN RIGHT:There is smooth intimal lining in the common carotid artery. There is hard plaque in the bulb extending into the internal and external carotid arteries.No colorflow disturbance is noted. LEFT: There is smooth intimal lining in the common carotid artery. There is hard plaque in the bulb extending into the internal and external carotid arteries. colorflow is disturbed in the external carotid artery. PRELIMINARY FINDINGS 1.< 50% stenosis in the bulb, internal and external carotid artery, bilaterally. 2.<50% stenosis in the right external carotid artery; >50% stenosis in the left external carotid artery. PHYSICIAN INTERPRETATION Bilateral carotid duplex examination demonstrated atherosclerotic plaques in the bulbs. Less than 50% stenosis in the bulb and internal carotid artery, bilaterally. Both vertebral arteries are antegrade. Left ECA stenosis. Carotid Findings:RightLeft Verteb.Flw AntegradeAntegrade Subclavian TriphasicTriphasic MEASUREMENTS: DOPPLER Right CCA Dist CCA Dist PSV83.8 cm/sCCA Dist EDV17.6 cm/s Right CCA Mid CCA Mid PSV 69.3 cm/sCCA Mid EDV 14.4 cm/s Right CCA Prox CCA Prox PSV66.1 cm/sCCA Prox EDV14.4 cm/s Right ECA ECA MZZ033 cm/sECA EDV6.3 cm/s Right ICA Dist ICA Dist PSV96.7 cm/Joon Dist EDV19.2 cm/s Right ICA Mid ICA Mid PSV 90.3 cm/Joon Mid EDV 19.2 cm/s Right ICA Prox ICA Prox PSV 106 cm/Joon Prox EDV22.4 cm/s Right Vertebral Vertebral PSV 45 cm/sVertebral EDV 12.8 cm/s Right Subclavian Subclavian PSV 102 cm/sSubclavian EDV 0 cm/s Left CCA Dist CCA Dist PSV74.1 cm/sCCA Dist EDV14.4 cm/s Left CCA Mid CCA Mid PSV 72.5 cm/sCCA Mid EDV 14.4 cm/s Left CCA Prox CCA Prox PSV69.2 cm/sCCA Prox EDV12.8 cm/s Left ECA ECA BKO254 cm/sECA EDV 20.7 cm/s Left ICA Dist ICA Dist PSV51.5 cm/Joon Dist EDV12.8 cm/s Left ICA Mid ICA Mid MAG297 cm/Joon Mid EDV 20.8 cm /s Left ICA Prox ICA Prox PSV59.6 cm/Joon Prox EDV12.8 cm/s Left Vertebral Vertebral PSV 45.1 cm/sVertebral EDV0 cm/s Left Subclavian Subclavian PSV 113 cm/sSubclavian EDV 0 cm/s Right ICA/CCA Ratio ICA/CCA PSV 1.53 Left ICA/CCA Ratio ICA/CCA PSV0.822 Signed 02/27/2017 11:55 AM oCrey Giron MD, RPVI Procedure Note Interface, Radiology Results In - 02/27/2017 11:56 AM CDT Vascular Ultrasound Laboratory Carotid Artery Duplex Report [id number] [place] [address] For clinical quality assurance specialist purposes, the categorization of the degree of the stenosis of this exam is based on criteria described in the IAC carotid stenosis grading white paper( [email or web address]) and Eugenio E.Laurent., Efrem, C.B., et al. Carotid artery stenosis: mcgrath-scale and Doppler US diagnosis--Society of Radiologists in Ultrasound Consensus Conference. Radiology. 2003 Nov; 229(2):340-6. Pat.Name: CHRISTINE BENITEZ Pat.ID: [id number] St.Date: 02/27/2017 Refer.MD: SHERRI QUEZADA MD Exam Time: 8:50:00 AM Study Type:Carotid Height: 70in Age: 5 1935,81Y Sex: MALE Sonogrphr: Arnoldo Blanton RN, RVT Pat. Stat.:Inpatient Room: [address] Vol: DP, CPT - 4: 50343 Echo Event ID:[id number] Order ID: [id number] Reason for Study:Unsteady gait and vertigo for 8 days. Dysphagia. Race: SUMMARY: PHYSICAL ASSESSMENT Blood Pulses Carotid Pressure Carotid Temporal Bruit Right 180/80 + + 0 Left 178/80 + + 0 CAROTID ARTERY SCAN RIGHT: There is smooth intimal lining in the common carotid artery. There is hard plaque in the bulb extending into the internal and external carotid arteries. No colorflow disturbance is noted. LEFT: There is smooth intimal lining in the common carotid artery. There is hard plaque in the bulb extending into the internal and external carotid arteries. colorflow is disturbed in the external carotid artery. PRELIMINARY FINDINGS 1. < 50% stenosis in the bulb, internal and external carotid artery, bilaterally. 2. <50% stenosis in the right external carotid artery; >50% stenosis in the left external carotid artery. PHYSICIAN INTERPRETATION Bilateral carotid duplex examination demonstrated atherosclerotic plaques in the bulbs. Less than 50% stenosis in the bulb and internal carotid artery, bilaterally. Both vertebral arteries are antegrade. Left ECA stenosis. Carotid Findings: Right Left Verteb.Flw Antegrade Antegrade Subclavian Triphasic Triphasic MEASUREMENTS: DOPPLER Right CCA Dist CCA Dist PSV 83.8 cm/s CCA Dist EDV 17.6 cm/s Right CCA Mid CCA Mid PSV 69.3 cm/s CCA Mid EDV 14.4 cm/s Right CCA Prox CCA Prox PSV 66.1 cm/s CCA Prox EDV 14.4 cm/s Right ECA ECA PSV 102 cm/s ECA EDV 6.3 cm/s Right ICA Dist ICA Dist PSV 96.7 cm/s ICA Dist EDV 19.2 cm/s Right ICA Mid ICA Mid PSV 90.3 cm/s ICA Mid EDV 19.2 cm/s Right ICA Prox ICA Prox PSV 106 cm/s ICA Prox EDV 22.4 cm/s Right Vertebral Vertebral PSV 45 cm/s Vertebral EDV 12.8 cm/s Right Subclavian Subclavian PSV 102 cm/s Subclavian EDV 0 cm/s Left CCA Dist CCA Dist PSV 74.1 cm/s CCA Dist EDV 14.4 cm/s Left CCA Mid CCA Mid PSV 72.5 cm/s CCA Mid EDV 14.4 cm/s Left CCA Prox CCA Prox PSV 69.2 cm/s CCA Prox EDV 12.8 cm/s Left ECA ECA PSV 176 cm/s ECA EDV 20.7 cm/s Left ICA Dist ICA Dist PSV 51.5 cm/s ICA Dist EDV 12.8 cm/s Left ICA Mid ICA Mid PSV 102 cm/s ICA Mid EDV 20.8 cm/s Left ICA Prox ICA Prox PSV 59.6 cm/s ICA Prox EDV 12.8 cm/s Left Vertebral Vertebral PSV 45.1 cm/s Vertebral EDV 0 cm/s Left Subclavian Subclavian PSV 113 cm/s Subclavian EDV 0 cm/s Right ICA/CCA Ratio ICA/CCA PSV 1.53 Left ICA/CCA Ratio ICA/CCA PSV 0.822 Signed 02/27/2017 11:55 AM Corey Giron MD, RPVI CTA Head W Wo Contrast (02/27/2017 12:19 AM) Specimen Performing Laboratory [address] [address] Narrative EXAMINATION: CT ANGIOGRAM HEAD W WO CONTRAST CLINICAL HISTORY: STROKE. Evaluate for artery stenosis COMPARISON:None TECHNIQUE:Imaging of the intracranial circulation was obtained from the skull base to the vertex during the arterial phase of enhancement. Postprocessing was performed with MIP multiplanar and 3D reconstructed images.CT scans are performed using radiation dose reduction techniques. Technical factors are evaluated and adjusted to ensure appropriate moderation of exposure. Automated dose management technology is applied to adjust radiation exposure while achieving a diagnostic quality image. FINDINGS: The study was completed MR knee after hours at 0020 hours. There is calcified plaque in the distal internal carotid arteries and the hardening artifacts obscure the distal internal carotid arteries in the skull base. There may be mild stenosis in the distal internal carotid arteries in some of the images. There is flow in the anterior communicating artery region. There appears to be moderate stenosis in the distal left M1 segment. There is no significant focal stenosis in the other major arteries forming the [place]. There is good enhancement within the venous sinuses. The study is not performed for proper imaging of the brain. IMPRESSION: Possibly moderate stenosis in the distal left M1 segment. [facility]-[id number] Procedure Note Interface, Radiology Results Incoming - 02/27/2017 12:27 AM CDT EXAMINATION: CT ANGIOGRAM HEAD W WO CONTRAST CLINICAL HISTORY: STROKE. Evaluate for artery stenosis COMPARISON: None TECHNIQUE: Imaging of the intracranial circulation was obtained from the skull base to the vertex during the arterial phase of enhancement. Postprocessing was performed with MIP multiplanar and 3D reconstructed images. CT scans are performed using radiation dose reduction techniques. Technical factors are evaluated and adjusted to ensure appropriate moderation of exposure. Automated dose management technology is applied to adjust radiation exposure while achieving a diagnostic quality image. FINDINGS: The study was completed MR knee after hours at 0020 hours. There is calcified plaque in the distal internal carotid arteries and the hardening artifacts obscure the distal internal carotid arteries in the skull base. There may be mild stenosis in the distal internal carotid arteries in some of the images. There is flow in the anterior communicating artery region. There appears to be moderate stenosis in the distal left M1 segment. There is no significant focal stenosis in the other major arteries forming the [place]. There is good enhancement within the venous sinuses. The study is not performed for proper imaging of the brain. IMPRESSION: Possibly moderate stenosis in the distal left M1 segment. [facility]-[id number] CTA Neck W Wo Contrast (02/27/2017 12:19 AM) Specimen Performing Laboratory [facility] [address] [place] [place] [address] Narrative EXAMINATION: CT ANGIOGRAM NECK W WO CONTRAST CLINICAL HISTORY: STROKE. Evaluate for artery stenosis COMPARISON:The study was completed emergently after hours at 0020 hours. TECHNIQUE: Imaging of the cervical circulation was obtained from the upper thorax to the skull base during the arterial phase of enhancement. Postprocessing was performed with MIP multiplanar and 3D reconstructed images.CT scans are performed using radiation dose reduction techniques. Technical factors are evaluated and adjusted to ensure appropriate moderation of exposure. Automated dose management technology is applied to adjust radiation exposure while achieving a diagnostic quality image. FINDINGS: There is mild calcified plaque in the aortic arch, proximal left subclavian artery and brachiocephalic artery. There is calcified plaque in the distal right common carotid artery and proximal right internal carotid artery. There is approximately 50% diameter stenosis in the proximal right internal carotid artery by NASCET criteria. There is calcified plaque at the left carotid artery bifurcation and proximal left internal carotid artery. There is approximately 20% stenosis in the proximal left internal carotid artery by NASCET criteria. The vertebral arteries are approximately equal in size in the cervical region without definite significant focal stenosis. The study was not performed for proper imaging of soft tissue structures in the neck and chest. There is a partially calcified left thyroid gland mass measuring approximately 2 cm in AP dimension by 1.4 cm in transverse dimension. Artifacts obscures some details of the thyroid gland. There are postoperative changes and degenerative changes in the cervical spine. The study was not performed for proper imaging of the cervical spine. There is anterior fusion from C3 to C5 with mild anterolisthesis at C3-4. There is mild reversal of the cervical lordosis. There is moderate posterior disc space narrowing at C2-3, C5-6 and C6-7 and severe disc space narrowing at C7-T1. There are multilevel ventral osteophytes. There is minimal anterolisthesis at C2-3. There are hypertrophic changes with severe right C2-3, severe bilateral C3-4, severe left and moderate right C4-5, severe right and moderate left C5-6 and less foramen stenosis at other levels. There is at most mild canal stenosis at C3-C4, C4-5 and C5-6 from dorsal spondylosis. There is moderate opacification of the left maxillary sinus from fluid and mucosal thickening. There is mild mucosal thickening in the right maxillary sinus. There is mucosal thickening with moderate opacification of the bilateral ethmoid sinuses. There is mild mucosal thickening in the frontal sinuses. Dental artifact obscures detail of the teeth and adjacent structures. IMPRESSION: Moderate stenosis in the proximal right internal carotid. Mild stenosis in the proximal left internal carotid by NASCET criteria. Degenerative and postoperative changes in the cervical spine. Sinusitis. Thyroid mass which by size criteria could be malignant and can be further evaluated with ultrasound and biopsy [facility]-[id number] Procedure Note Interface, Radiology Results 02/27/2017 12:36 AM CDT EXAMINATION: CT ANGIOGRAM NECK W WO CONTRAST CLINICAL HISTORY: STROKE. Evaluate for artery stenosis COMPARISON: The study was completed emergently after hours at 0020 hours. TECHNIQUE: Imaging of the cervical circulation was obtained from the upper thorax to the skull base during the arterial phase of enhancement. Postprocessing was performed with MIP multiplanar and 3D reconstructed images. CT scans are performed using radiation dose reduction techniques. Technical factors are evaluated and adjusted to ensure appropriate moderation of exposure. Automated dose management technology is applied to adjust radiation exposure while achieving a diagnostic quality image. FINDINGS: There is mild calcified plaque in the aortic arch, proximal left subclavian artery and brachiocephalic artery. There is calcified plaque in the distal right common carotid artery and proximal right internal carotid artery. There is approximately 50% diameter stenosis in the proximal right internal carotid artery by NASCET criteria. There is calcified plaque at the left carotid artery bifurcation and proximal left internal carotid artery. There is approximately 20% stenosis in the proximal left internal carotid artery by NASCET criteria. The vertebral arteries are approximately equal in size in the cervical region without definite significant focal stenosis. The study was not performed for proper imaging of soft tissue structures in the neck and chest. There is a partially calcified left thyroid gland mass measuring approximately 2 cm in AP dimension by 1.4 cm in transverse dimension. Artifacts obscures some details of the thyroid gland. There are postoperative changes and degenerative changes in the cervical spine. The study was not performed for proper imaging of the cervical spine. There is anterior fusion from C3 to C5 with mild anterolisthesis at C3-4. There is mild reversal of the cervical lordosis. There is moderate posterior disc space narrowing at C2-3, C5-6 and C6-7 and severe disc space narrowing at C7-T1. There are multilevel ventral osteophytes. There is minimal anterolisthesis at C2-3. There are hypertrophic changes with severe right C2-3, severe bilateral C3-4, severe left and moderate right C4-5, severe right and moderate left C5-6 and less foramen stenosis at other levels. There is at most mild canal stenosis at C3-C4, C4-5 and C5-6 from dorsal spondylosis. There is moderate opacification of the left maxillary sinus from fluid and mucosal thickening. There is mild mucosal thickening in the right maxillary sinus. There is mucosal thickening with moderate opacification of the bilateral ethmoid sinuses. There is mild mucosal thickening in the frontal sinuses. Dental artifact obscures detail of the teeth and adjacent structures. IMPRESSION: Moderate stenosis in the proximal right internal carotid. Mild stenosis in the proximal left internal carotid by NASCET criteria. Degenerative and postoperative changes in the cervical spine. Sinusitis. Thyroid mass which by size criteria could be malignant and can be further evaluated with ultrasound and biopsy [facility]-[id number] Bilirubin direct (02/26/2017 11:34 PM)Only the most recent of2 resultswithin the time period is included. Component Value Ref Range Bilirubin direct <0.2 0.0 - 0.3 mg/dL Specimen Performing Laboratory Plasma specimen [facility] DEPARTMENT OF PATHOLOGY AND GENOMIC MEDICINE [address] [place] [id number] Partial thromboplastin time, activated (02/26/2017 9:00 PM) Component Value Ref Range PTT 26.0 23.0 - 36.0 sec Comment: PTT therapeutic range for unfractionated heparin is 61.0-112.0 seconds which corresponds to Anti-Xa 0.3-0.7 U/ml. Specimen Performing Laboratory Blood [facility] DEPARTMENT OF PATHOLOGY AND GENOMIC MEDICINE [address] [place] [address] Lactic acid level (02/26/2017 9:00 PM) Component Value Ref Range Lactic acid 1.6 0.5 - 2.2 mmol/L Specimen Performing Laboratory Plasma specimen [facility] DEPARTMENT OF PATHOLOGY AND GENOMIC MEDICINE [address] [place] [address] Ammonia level (02/26/2017 9:00 PM) Component Value Ref Range Ammonia 38 16 - 60 umol/L Specimen Performing Laboratory Blood [facility] DEPARTMENT OF PATHOLOGY AND GENOMIC MEDICINE [address] [place] [id number] after 02/15/2017 Insurance Payer Benefit Plan / Group Subscriber ID Type Phone Address [employer] MEDICARE AETNA MEDICARE HMO/PPO [facility] xxxxxxxx HMO
--- NOTE | 2018-02-16 03:30 | EDPHYS ---
Physician Documentation [facility] Name: Albino Sewell Age: 82 yrs Sex: Male : 1935 Arrival Date: 02/16/2018 Time: 02:45 Bed 3 Private MD: ED Physician Terrell Weaver HPI: 02/16 02:59 This 82 yrs old Male presents to ER via Unassigned with complaints of CPR. jr8 02:59 Preceding the arrest, the patient collapsed. The arrest occurred at home. Pre-hospital jr8 course: The arrest was witnessed by family. Bystanders at the scene performed CPR. EMS care prior to arrival: initiation of ACLS, peripheral IV, was successfully placed. intubation was successfully performed, orally, oxygen, by BVM to assist ventilations. 100% by ET tube. backboard, 10 minutes elapsed prior to ACLS. The patient has not experienced similar symptoms in the past. The patient has been recently seen at the [facility] Emergency Department, yesterday. stated that patient had gotten up to use the restroom. Had called out for her to see where she was. and told him and then he went to use bathroom. Stated that he came back in with flash light asking where she was again. Noticed that he was disoriented. At that time got up and turned lights on to see how he was. Patient then after talking to him for a few seconds suddenly collapsed to ground. Daughter had arrived to house and started CPR but CPR was not immediately initiated . Family stated that he had been in and out of hospital last week or so for breathing difficulty and near syncopal like episodes . Historical: - Allergies: 03:32 Augmentin; fc 03:32 Clarithromycin; fc 03:32 Cleocin; fc 03:32 clindamycin HCl; fc 03:32 Demerol; fc 03:32 enalapril maleate; fc 03:32 Biaxin; fc 03:32 PENICILLINS; fc 03:32 Morphine; fc 03:32 Vasotec; fc 03:32 Keflex; fc - Home Meds: 03:32 Metoprolol Tartrate 12.5 MG Oral 1 tab 2 times per day [Active]; hydralazine 25 mg Oral fc tab 1 tab 2 times per day [Active]; amlodipine 2.5 mg tab 1 tab twice a day [Active]; Plavix 75 mg Oral tab 1 tab once daily [Active]; pantoprazole 40 mg oral TbEC 1 tab 2 times per day [Active]; Lasix 40 mg oral tab 1 tab 2 times per day [Active]; Klor-Con 10 10 mEq Oral TbER 1 tab once daily [Active]; Ecotrin 81 mg Oral 1 tab once daily [Active]; pravastatin 20 mg Oral tab 1 tab nightly [Active]; Vitamin B-6 100 mg Oral tab daily [Active]; Vitamin B-12 1,000 mcg/mL Oral drop daily [Active]; Miralax 17 gram Oral pwpk 1 packet once daily [Active]; tramadol 50 mg Oral tab 1 tab qid prn [Active]; Perforomist 20 mcg/2 mL inhalation nebu 2 times per day [Active]; budesonide 0.5 mg/2 mL inhalation nbsp 2 mL 2 times per day [Active]; - PMHx: 03:32 CHF; High Cholesterol; Hypertension; TIA; Prostate Cancer; CVA; Anemia; COPD; Back fc pain; malaise; fatigue; Pulmonary hypertension; Sciatica; PVD; Small bowel obstruction; Angina; Prostate Adenocarcinoma; - PSHx: 03:32 Bowel resection; Knee surgery; back; heart cath with stent; 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 - Social history:: Smoking status: unknown. ROS: 02:59 Unable to obtain ROS due to CPR. jr8 Exam: 02:59 Head/Face: Normocephalic, atraumatic. Eyes: pupils equal, fixed, size 3 bilaterally jr8 ENT: Nares patent. No nasal discharge, no septal abnormalities noted. Patient with ET tube and NG tube present. Mucous membranes moist. [place] frothy sputum noted Neck: Trachea midline, Neck supple Cardiovascular: Patient without heart beat Respiratory: Lungs have equal breath sounds bilaterally. Rales noted bilaterally Abdomen/GI: Soft. Mild distension noted Skin: Warm, dry with normal turgor. Normal color with no rashes, no lesions, and no evidence of cellulitis. Neuro: Patient unresponsive. CPR. GCS 3T Vital Signs: 02:42 Temp 94.3(R); ao Procedures: 03:23 CPR: See CPR flow sheet. Initial patient assessment: unresponsive, no respiratory jr8 effort, pale, intubated, Ambu ventilation, pulses absent w/ compressions, The presenting cardiac rhythm is asystole. the patient was intubated prior to arrival, Compressions: began prior to arrival. Meds given: See Meds list. CPR was stopped at 02:43. MDM: 02:59 Patient medically screened. jr8 02:59 Data reviewed: vital signs, nurses notes. 8 02/16 04:37 Order name: FSBS; Complete Time: 04:37 tc3 Administered Medications: 02:46 Drug: Calcium Chloride 10% 10 ml {Note: IO left lower leg.} Route: IVP; Site: Other; tc3 02:53 Follow up: Response: No adverse reaction; No change in condition tc3 02:47 Drug: Sodium Bicarbonate 1 amp {Note: IO left lower leg.} Route: IVP; Site: Other; tc3 02:53 Follow up: Response: No adverse reaction; No change in condition tc3 02:47 Drug: EPINEPHrine 0.1mg/mL 1:10,000 1 mg {Note: IO left lower leg.} Route: IVP; Site: tc3 Other; 04:41 Follow up: Response: No adverse reaction; No change in condition tc3 02:48 Drug: NS 0.9% 1000 ml {Note: IO to left lower leg with pressure bag.} Route: IV; Rate: tc3 1000 ml; Site: Other; 04:40 Follow up: IV Status: Order to discontinue infusion tc3 02:50 Drug: EPINEPHrine 0.1mg/mL 1:10,000 1 mg {Note: IO lewft lower leg.} Route: IVP; Site: tc3 Other; 02:53 Follow up: Response: No adverse reaction; No change in condition tc3 Point of Care Testing: Blood Glucose: 02:46 Blood Glucose: 226 mg/dL; ao Ranges: Critical Glucose Levels:Adult <50 mg/dl or >400 mg/dl <40 mg/dl or >180 mg/dl Disposition: 03:23 . jr8 06:57 Co-signature as Attending Physician, Terrell Weaver MD I agree with the assessment and yoly plan of care. Disposition: Patient pronounced on 02/16/18 02:43 by Jae Cotter. Impression: Cardiac arrest. - Released to Home. Signatures: Terrell Weaver MD MD cha Chretien, Felicia RN RN Jae Floyd PA PA jr8 Sascha Pierce RN RN Ebony Leggett RN RN tc3 Corrections: (The following items were deleted from the chart) 03:28 02:59 EMS stated that heard patient scream. immediately went to see what jr8 happened. Patient was found on the ground. EMS stated that had been doing bystander CPR 10 min SECURITY INTELLIGENCE ANALYST there arrival. jr8
--- NOTE | 2018-02-16 03:30 | ER ---
Nurse's Notes [facility] Name: Albino Sewell Age: 82 yrs Sex: Male : 1935 Arrival Date: 02/16/2018 Time: 02:45 Bed 3 Private MD: Diagnosis: Cardiac arrest Presentation: 02/16 02:42 Presenting complaint: EMS states: " called and informed patient was found down ao approximately about 0113. Patient had no pulse and not respiration. Patient show to be on V-tach on the monitor. Started CPR on scene.". Transition of care: patient was not received from another setting of care. Onset of symptoms was February 16, 2018 at 01:43. Care prior to arrival: CPR Medication(s) given: Normal saline infusion, 1000 mL, 1 Amp NA Bicarb. 02:42 Method Of Arrival: EMS: [facility] ao 02:42 Acuity: KEAGAN 1 ao 02:42 Care prior to arrival: IV initiated. I\\T\\O in the left leg. ao 02:42 Care prior to arrival: Oral intubation, pt being ventilated via Ambu bag to ET tube tc3 7.5, 24 at lip and secured, CPR in progress, ACLS protocol "being followed per EMS" (gave 1 amp Na Bicarb, Epi 1 amp, 1 liter NS), NG tube 16 Fr to left nare and secured. EMS had utilized "thumper" JUNIOR TECHNICAL WRITER Triage Assessment: 02:46 General: Appears distressed, Behavior is unresponsive. Pain: Unable to use pain scale. ao Patient is intubated. Patient is unresponsive. EENT: No signs and/or symptoms were reported regarding the EENT system. Neuro: Level of Consciousness is unresponsive, Oriented to intubated. Cardiovascular: Capillary refill is > 3 seconds Rhythm is asystole. Respiratory: Airway via oral intubation. GI: Abdomen is obese. :. Derm: Skin is purple. Musculoskeletal: Unresponsive. Historical: - Allergies: 03:32 Augmentin; fc 03:32 Clarithromycin; fc 03:32 Cleocin; fc 03:32 clindamycin HCl; fc 03:32 Demerol; fc 03:32 enalapril maleate; fc 03:32 Biaxin; fc 03:32 PENICILLINS; fc 03:32 Morphine; fc 03:32 Vasotec; fc 03:32 Keflex; fc - Home Meds: 03:32 Metoprolol Tartrate 12.5 MG Oral 1 tab 2 times per day [Active]; hydralazine 25 mg Oral fc tab 1 tab 2 times per day [Active]; amlodipine 2.5 mg tab 1 tab twice a day [Active]; Plavix 75 mg Oral tab 1 tab once daily [Active]; pantoprazole 40 mg oral TbEC 1 tab 2 times per day [Active]; Lasix 40 mg oral tab 1 tab 2 times per day [Active]; Klor-Con 10 10 mEq Oral TbER 1 tab once daily [Active]; Ecotrin 81 mg Oral 1 tab once daily [Active]; pravastatin 20 mg Oral tab 1 tab nightly [Active]; Vitamin B-6 100 mg Oral tab daily [Active]; Vitamin B-12 1,000 mcg/mL Oral drop daily [Active]; Miralax 17 gram Oral pwpk 1 packet once daily [Active]; tramadol 50 mg Oral tab 1 tab qid prn [Active]; Perforomist 20 mcg/2 mL inhalation nebu 2 times per day [Active]; budesonide 0.5 mg/2 mL inhalation nbsp 2 mL 2 times per day [Active]; - PMHx: 03:32 CHF; High Cholesterol; Hypertension; TIA; Prostate Cancer; CVA; Anemia; COPD; Back fc pain; malaise; fatigue; Pulmonary hypertension; Sciatica; PVD; Small bowel obstruction; Angina; Prostate Adenocarcinoma; - PSHx: 03:32 Bowel resection; Knee surgery; back; heart cath with stent; 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 - Social history:: Smoking status: unknown. Screenin:46 Abuse screen: Patient unresponsive. Nutritional screening: Patient unresponsive. ao Tuberculosis screening: Patient unresponsive. Fall Risk Fall in past 12 months (25 points). Assessment: 02:42 General: See triage assessment. ao 02:44 Reassessment: Patient has no pulse. Reassessment: Patient here ETT verified by juan f Cotter PA and CPR continue. 02:46 Reassessment: Recheck pulse and there was no pulse. Continue with CPR. Reassessment: ao Given Calcium 1 Amp by I\\T\\O. 02:47 Reassessment: Given Epi by I\\T\\O. Reassessment: given Na Bicarb by I\\T\\o. ao 02:48 Reassessment: rechecked pulse and there was no pulse. continue with CPR. ao 02:50 Reassessment: Recheck pulse and there was no pulse. Continue with CPR. Reassessment: ao Given an Epi by I\\T\\O. 02:52 Reassessment: Recheck Pulse and there was no pulse. Continue with CPR. Reassessment: ao Recheck pulse and there was no pulse. Called out by DEEPAK Cotter. Time of 0253. 03:48 General: Home Weatherizing Worker Jame arrived. tc3 03:50 Reassessment: Called [facility] and spoke to Ioana Meza. Patient is candidate for tissue ao donation. Agent will called to follow up with . 04:10 General: Dye Feeder Renan arrived. tc3 04:23 General: Per Dye Feeder, pt will not be sent for autopsy, recommended removal of all tubes, tc3 IVs, etc so family could visit. Removed all apparatuses per Dye Feeder order. 04:30 Reassessment: and other family members at bedside. ao 05:13 Reassessment: [facility] called back to follow up with information about next to isela and ao home information. 06:17 Reassessment: Release body to home [facility] signed by Booker Lanza. Vital Signs: 02:42 Temp 94.3(R); ao ED Course: 02:45 Patient arrived in ED. am2 02:59 Jae Cotter PA is PHCP. jr8 02:59 Terrell Weaver MD is Attending Physician. jr8 03:07 Triage completed. ao 03:07 Arm band placed on Patient placed in an exam room, on a stretcher, on oxygen, on ao lunchroom monitor, on pulse oximetry. 03:17 Patient has correct armband on for positive identification. ao 03:25 CPR. IV discontinued, Patient . ao 03:29 Jae Cotter PA is Pronouncing Provider. jr8 Administered Medications: 02:46 Drug: Calcium Chloride 10% 10 ml {Note: IO left lower leg.} Route: IVP; Site: Other; tc3 02:53 Follow up: Response: No adverse reaction; No change in condition tc3 02:47 Drug: Sodium Bicarbonate 1 amp {Note: IO left lower leg.} Route: IVP; Site: Other; tc3 02:53 Follow up: Response: No adverse reaction; No change in condition tc3 02:47 Drug: EPINEPHrine 0.1mg/mL 1:10,000 1 mg {Note: IO left lower leg.} Route: IVP; Site: tc3 Other; 04:41 Follow up: Response: No adverse reaction; No change in condition tc3 02:48 Drug: NS 0.9% 1000 ml {Note: IO to left lower leg with pressure bag.} Route: IV; Rate: tc3 1000 ml; Site: Other; 04:40 Follow up: IV Status: Order to discontinue infusion tc3 02:50 Drug: EPINEPHrine 0.1mg/mL 1:10,000 1 mg {Note: IO lewft lower leg.} Route: IVP; Site: tc3 Other; 02:53 Follow up: Response: No adverse reaction; No change in condition tc3 Point of Care Testing: Blood Glucose: 02:46 Blood Glucose: 226 mg/dL; ao Ranges: Outcome: 02:53 Condition: tc3 06:18 Patient : Time of 02:53 Pronounced by Jae SOTELO Body to home.ao 06:28 Patient left the ED. ao Signatures: Gilma Ling RN RN Jae Floyd PA PA jr8 Sascha Pierce RN RN Avril Hamlin am2 Ebony Silva RN RN tc3 Corrections: (The following items were deleted from the chart) 03:37 03:01 Presenting complaint: EMS states: " called and informed patient was found ao down approximately about 0113. Patient had no pulse and not respiration. Patient show to be on V-tach on the monitor. Started CPR on scene." ao 03:37 03:01 Transition of care: patient was not received from another setting of care. ao ao :37 03:01 Onset of symptoms was February 16, 2018 at 01:43 ao ao 03:37 03:01 Care prior to arrival: CPR Medication(s) given: Normal saline infusion, 1000 mL, ao 1 Amp NA Bicarb ao 03:37 03:01 Method Of Arrival: EMS: [facility] ao ao 37 03:01 Acuity: KEAGAN 1 ao ao 04:09 02:44 Reassessment: Patient here ETT and CPR ao ao 04:51 02:42 Care prior to arrival: Oral intubation, pt being ventilated via Ambu bag, CPR in tc3 progress, ACLS protocol "being followed per EMS", NG tube to left nare and secured tc3
[2018-02-16 06:32] VITALS: TEMP 94.3
== END 2018-02-16 06:28 | disposition expired ==
LOC: ER 02:42
DX: I46.9 Cardiac arrest, cause unspecified (principal); I10 Essential (primary) hypertension; I50.9 Heart failure, unspecified; J44.9 Chronic obstructive pulmonary disease, unspecified; E78.00 Pure hypercholesterolemia, unspecified; Z85.46 Personal history of malignant neoplasm of prostate; Z79.01 Long term (current) use of anticoagulants; Z88.0 Allergy status to penicillin; Z88.1 Allergy status to other antibiotic agents; Z88.3 Allergy status to other anti-infective agents; Z88.5 Allergy status to narcotic agent; Z88.8 Allergy status to other drugs, medicaments and biological substances; Z85.828 Personal history of other malignant neoplasm of skin
CPT/HCPCS: 82962; 92950; 96361; 96374; 96375; 99285; J0171; J7030